=== PATIENT | female | born 1950 | race Caucasian/White ===

== ENCOUNTER 2025-03-11 08:25 | Outpatient (AMB) | payer MEDICARE, SELFPAY ==
--- NOTE | 2025-03-11 08:36 | A.OFFVIS_ITS ---
Intake Visit Reasons: 6 month f/u Allergies morphine Allergy (Verified 03/10/25 21:57) Unknown Medication List - Last Reconciled 03/11/25 by Ignacio Whitten MD azelastine intranasal furosemide mg PO DAILY gentamicin 0.1% topical DAILY levothyroxine 100 mcg PO DAILY omeprazole 20 mg PO DAILY rosuvastatin 5 mg PO DAILY sertraline 25 mg PO DAILY sertraline 50 mg PO DAILY valsartan mg PO DAILY HPI Comments Details: 73 years old woman with multifactorial dementia with signs suggestive of cerebral amyloid angiopathy on her brain MRI. She said that she was not the person she used to be. She used to be very emotional any easily could cry but has not cried for long time despite watching all the tragedy in [place]. She was constantly nervous and anxious. According to her she has been nervous all her life. Headaches were not that frequent at this time. Balance and walking were okay. Bladder control was okay. No significant pain. [facility] Medical History (Updated 03/11/25 @ 08:49 by Ignacio Whitten MD) Sinus disease Stroke Tension type headache Multifactorial dementia Alzheimer disease Mild dementia Encephalopathy Multiple cerebral infarctions Cerebral microvascular disease Chronic sinusitis Anxiety disorder Hypertension Cerebral amyloid angiopathy Review of Systems Const Details: Constitutional:?No fever, chills, fatigue, weight loss, or night sweats. HEENT:?No headache, vision changes, hearing loss, nasal congestion, sore throat. Neurological:? Forgetfulness Psychiatric:? Significant anxiety and flat mood Endocrine:?No heat/cold intolerance, polydipsia, polyuria, or hair/skin changes. Hematologic/Lymphatic:?No easy bruising, bleeding, or lymphadenopathy. Integumentary (Skin):?No rash, lesions, itching, or color changes. ? Physical Exam Neuro Other: Mental Status: Alert and oriented to person, place, and time. Cranial Nerves: CN II: Visual farias full to confrontation, visual acuity intact. CN III, IV, : Pupils equal, round, reactive to light and accommodation. Extraocular movements are normal. CN V: Facial sensation is normal. CN VII: Facial movements symmetrical. CN VIII: Hearing intact to bedside conversation is normal. CN IX, X: Palate elevates symmetrically. CN XI: Shoulder shrug and head turn symmetrical. CN XII: Tongue midline without atrophy or fasciculations. Motor: Bulk and tone normal in all extremities. No significant muscle weakness in arms and legs. No drift. Extrapyramidal: Full facial expressions and blinking. No rigidity. Movements are appropriate with no tremor or abnormality. Speech: Normal; no dysarthria or tremor. Assessment & Plan Assessment & Plan (1) Cerebral amyloid angiopathy: Comment: MRI brain WO at [facility] in Oct 2021: multiple b/l WM lesions on FLAIR and many on gradiant echo, pansinusitis, one right medial frontal acute lesion EEG at off in Sep 2022: [place] CT brain WO at [facility] in Oct 2021: MVD MRA neck and brain at [facility] in 2021: [place] Holter at [facility] in Oct 2021: OK (per pt). Code(s): E85.4 - Organ-limited amyloidosis; I68.0 - Cerebral amyloid angiopathy Category: Medical (2) Dementia with behavioral disturbance: Code(s): F03.918 - Unspecified dementia, unspecified severity, with other behavioral disturbance Category: Medical Plan Impression: Dementia with anxiety and depression with MRI brain showing signs of amyloid angiopathy of mild to moderate severity Rec: a: Continue Sertraline 50mg daily b: Try Quetiapine 25mg one at bedtime c: Psychotherapy can also help Medications: New sertraline 50 mg PO DAILY 90 tabs 0RF 90 days quetiapine 25 mg PO BEDTIME 90 tabs 0RF Coding Level of Care Code Tele Est Pt Level 4 (88861) Diagnoses Cerebral amyloid angiopathy E85.4; I68.0 Dementia with behavioral disturbance F03.918
--- OUTSIDE RECORDS SUMMARY | 2025-03-11 08:39 | XMS_ITS | Clinical Summary ---
Author Organization [facility] Address [address] [place] [address] Care Team Providers Care Baggage Agent Supervisor Name Role Phone Luigi Jenkins MD Primary Care Provider [phone] Social History Tobacco Use Types Packs/Day Years Used Date Smoking Tobacco: Never Assessed Comments Unknown Sex and Gender Information Value Date Recorded Sex Assigned at Not on file Legal Sex Female 2:31 PM EST Gender Identity Not on file Sexual Orientation Not on file Plan of Treatment Health Maintenance Due Date Last Done Comments DTaP,Tdap,and Td Vaccines (1 - Tdap) 11/21/1971 Pneumococcal Vaccine: 50+ Ye ars (1 of 1 - PCV) 2002 Zoster Vaccines (1 of 2) 2002 Colorectal Cancer Screening: Colonoscopy 08/01/2022 Depression Screening 08/01/2022 Falls Risk Assessment 08/01/2022 Hepatitis C Screening 08/01/2022 Osteoporosis Screening (Bone Density Screening) 08/01/2022 Social Influencers of Health Screening 08/01/2022 Breast Cancer Screening 09/28/2023 09/28/2021 COVID-19 Vaccine ( - 2023-2 5 season) 2024 Influenza Vaccine (#1) 2025 RSV Immunization Adult Patie nts (1 - 1-dose 75+ series) 11/21/2027 HIB Vaccines Aged Out No longer eligi ble based on patient's age to complete this topic HPV Vaccines Aged Out No longer eligi ble based on patient's age to complete this topic Hepatitis A Vaccines Aged Out No long er eligible based on patient's age to complete this topic Hepatitis B Vaccines Aged Out No long er eligible based on patient's age to complete this topic IPV Vaccines Aged Out No longer eligi ble based on patient's age to complete this topic MMR Vaccines Aged Out No longer eligi ble based on patient's age to complete this topic Meningococcal ACWY Vaccine Aged Out N o longer eligible based on patient's age to complete this topic Meningococcal B Vaccine Aged Out No l onger eligible based on patient's age to complete this topic RSV Immunization Patients Un ivette 20 months Aged Out No longer eligible b ased on patient's age to complete this topic Varicella Vaccines Aged Out No longer eligible based on patient's age to complete this topic Procedures Procedure Name Priority Date/Time Associated Diagnosis Comments [facility] SCREENING DIGITAL Routine 09/28/2021 8:56 AM EST Encounter for screening mammogram for malignant neoplasm of breast from Last 3 Months or Most Recently Relevant to Health Maintenance Results * [facility] SCREENING DIGITAL (09/28/2021 8:56 AM EST) Anatomical Region Laterality Modality Mammography 09/28/2021 8:20 AM EST Narrative 09/28/2021 8:56 AM EST [facility] Diagnostic Imaging Department [address] [place] [address] Patient: DELILAH SOTELO Orlando BeckB./Age/Sex: 1950 - 70 - F Unit#: [id number] Location/Status: [facility] CLI [facility] Physician: LUIGI JENKINS MD [facility] [place] Screening Digital - 09/28/21 - 0835 EXAM: [facility] [place] Screening Digital EXAM DATE AND TIME: 09/28/2021 8:37 AM HISTORY: Screening. COMPARISON: 07/06/20, 03/03/19, 01/07/18 (outside imaging) TECHNIQUE: CC and MLO views of both breasts were obtained using full field digital mammography. Bilateral digital breast tomosynthesis was performed in the MLO projection. Computer aided detection with the Veebow 7.2-H was employed. TISSUE DENSITY: a. The breasts are almost entirely fatty. FINDINGS: No suspicious masses, grouped microcalcifications, or areas of architectural distortion are seen. Vascular calcification is present. The skin is unremarkable. IMPRESSION: Stable mammographic appearance of the breasts. No evidence of malignancy is seen. A negative mammogram in the presence of a clinically suspicious palpable abnormality does not preclude the possibility of malignancy or alter the indications for biopsy. BI-RADS: Category 2: Benign RECOMMENDATION(S): 1: Routine screening mammogram BILATERAL in 1 year. 66626, 43342 3342F, 7025F Dictating Physician: FATOU PERES MD Electronically Signed by: FATOU PERES MD Dic Date/Time: 09/28/2155 Sign date/Time: 09/28/21 0856 Procedure Note Fatou Peres MD - 08/22/2022 [facility] Diagnostic Imaging Department [address] [place] [address] Patient: DELILAH SOTELO Orlando BeckB./Age/Sex: 1950 - 70 - F Unit#: [id number] Location/Status: [facility] Mnemonic/Ordering Site: [facility] Ordering Physician: LUIGI JENKINS MD [facility] Screening Digital - 09/28/21 - 0835 EXAM: [facility] [place] Screening Digital EXAM DATE AND TIME: 09/28/2021 8:37 AM HISTORY: Screening. COMPARISON: 07/06/20, 03/03/19, 01/07/18 (outside imaging) TECHNIQUE: CC and MLO views of both breasts were obtained using fullfield digital mammography. Bilateral digital breast tomosynthesis was performedin the MLO projection. Computer aided detection with the [employer] employed. TISSUE DENSITY: a. The breasts are almost entirely fatty. FINDINGS: No suspicious masses, grouped microcalcifications, or areas ofarchitectural distortion are seen. Vascular calcification is present. The skin is unremarkable. IMPRESSION: Stable mammographic appearance of the breasts. No evidence of malignancyis seen. A negative mammogram in the presence of a clinically suspicious palpable abnormality does not preclude the possibility of malignancy or alter the indications for biopsy. BI-RADS: Category 2: Benign RECOMMENDATION(S): 1: Routine screening mammogram BILATERAL in 1 year. 42833, 57127 3342F, 7025F Dictating Physician: FATOU PERES MD Electronically Signed by: FATOU PERES MD Dic Date/Time: 09/28/21854 Sign date/Time: 09/28/21855 Luigi Jenkins MD IMG BI PROCEDURES Final Result from Last 3 Months or Most Recently Relevant to Health Maintenance Care Teams Baggage Agent Supervisor Relationship Specialty Start Date End Date Luigi Jenkins MD [address] PCP - General Internal Medicine 11/21/21
--- OUTSIDE RECORDS SUMMARY | 2025-03-11 08:39 | XMS_ITS | Data Portability ---
Author Organization [facility], Main Office Address [address] [facility] [address] [place] [id number] Care Team Providers Care Dispatcher Service Chief Name Role Phone LUIGI JENKINS Primary Care Provider [facility] Certified Hand Therapist NASEEM RIVERA Copy Director HELLEN BANDA Algology Teacher REINA JOHNSON Transitional Nurse ANNA DELATORRE Neurologist [facility] Orthopedic Surgeon NELSON CAVAZOS Mold Holder [phone] Assessment No assessment recorded. Plan of Treatment Reminders Order Date Submit Date Provider Last Modified By Organization Details Last Modified Time Details Appointments None record ed. Lab lipid panel, serum 2024 025 [facility] (Centralized Electronic Ordering - All Locations), Patient Can Go To The Location Of Their Choice, 06:12:46 CMP, serum or plasma 2024 025 [facility] (Centralized Electronic Ordering - All Locations), Patient Can Go To The Location Of Their Choice, 06:12:45 TSH, ultra- sensit tia, serum 2024 025 [facility] (Centralized Electronic Ordering - All Locations), Patient Can Go To The Location Of Their Choice, 06:12:46 CBC w/ auto diff 2024 025 [facility] (Centralized Electronic Ordering - All Locations), Patient Can Go To The Location Of Their Choice, [id number] 5 08:07:53 inflam mation panel, serum or plasma 2024 025 [facility] (Centralized Electronic Ordering - All Locations), Patient Can Go To The Location Of Their Choice, 5 08:07:56 magnes ium, serum or plasma 2024 025 [facility] (Centralized Electronic Ordering - All Locations), Patient Can Go To The Location Of Their Choice, [id number] 5 08:07:57 CMP, serum or plasma 2024 025 [facility] (Centralized Electronic Ordering - All Locations), Patient Can Go To The Location Of Their Choice, [id number] 5 08:07:54 urinal ysis, comple te 2024 025 [facility] (Centralized Electronic Ordering - All Locations), Patient Can Go To The Location Of Their Choice, [id number] 5 08:07:55 TSH + free T4, serum 2024 025 [facility] (Centralized Electronic Ordering - All Locations), Patient Can Go To The Location Of Their Choice, [id number] 5 08:07:52 Referral gastro entero logist referr al 2023 024 [facility], [address] [place], [address], 4 14:59:00 physic al therap ist referr al - At risk for fallin g 2023 024 [email or web address] Not available 4 09:27:40 Procedures None record ed. Surgeries None record ed. Imaging MAMMO, screen ing, bilate ral - Perfor m Diagno stic Mammog amadeo and Breast Ultras ound if needed / Perfor m Ultras ound Guided Aspira tion and/or Breast Biopsy if warran dennis 2023 024 [facility], [address] [place], [address], 4 08:24:38 Medication Orders valsar casas 320 mg tablet 2024 025 [facility], [address] [facility], [place], [address], 5 12:35:50 amoxic illin 875 mg-pot assium clavul anate 125 mg tablet 2024 025 [facility] [address] [place], [address], 5 11:07:16 predni sone 20 mg tablet 2024 025 [facility] [address] [place], [address], 5 11:08:14 predni sone 20 mg tablet 2022 023 [email or web address] [facility] [address] [place], [address], 5 11:08:10 doxycy mckeon hyclat e 100 mg capsul e 2022 023 [email or web address] [facility], [address] [place], [address], 4 08:37:42 benzon atate 100 mg capsul e 2022 023 [email or web address] [facility], [address] [place], [address], 4 08:37:34 Patient TargetsNo targets recorded. Patient Instructions Encounter Date Encounter Id Patient Instructions Last Modified By Organization Details Last Modified Time 07/11/2023 [id number] rec. albuterol 1 -2 puffs 3x/day x 3 days, then use every 4 hours as needed for shortness of breath / coughing fits [email or web address] Not available 07/11/2023 10:59:14 Follow up if no improvement or if symptoms worsen. [email or web address] Not available 07/11/2023 10:49:25 10/15/2023 [id number] advance care planning: care instructions awychowski Not available 10/15/2023 09:21:24 osteoporosis: ca re instructions awychowski Not available 10/15/2023 09:21:23 dementia: care instructions awychowski Not available 10/15/2023 09:21:24 helping A person with dementia: care instructions awychowski Not available 10/15/2023 09:21:24 high blood press ure: care instructions awychowski Not available 10/15/2023 09:21:24 learning about h igh blood pressure awychowski Not available 10/15/2023 09:21:24 gastroesophageal reflux disease (GERD): care instructions awychowski Not available 10/15/2023 09:21:23 preventing falls : care instructions awychowski Not available 10/15/2023 09:21:23 medicare prevent tia services guide (female 74yrs and under) awychowski Not available 10/15/2023 09:21:23 high cholesterol : care instructions awychowski Not available 10/15/2023 09:21:24 controlling your asthma: care instructions awychowski Not available 10/15/2023 09:21:24 learning about asthma awychowski Not available 10/15/2023 09:21:24 hypothyroidism: care instructions awychowski Not available 10/15/2023 09:21:24 01/02/2024 [id number] high blood press ure: care instructions awychowski Not available 01/02/2024 11:53:50 learning about h igh blood pressure awychowski Not available 01/02/2024 11:53:50 10/05/2024 [id number] headache: care instructions awychowski Not available 10/05/2024 11:51:08 hypothyroidism: care instructions awychowski Not available 10/05/2024 11:51:08 10/20/2024 [id number] advance care planning: care instructions awychowski Not available 10/20/2024 12:35:48 advance care planning: care instructions awychowski Not available 10/20/2024 12:39:26 osteoporosis: ca re instructions awychowski Not available 10/20/2024 12:35:48 dementia: care instructions awychowski Not available 10/20/2024 12:35:47 helping A person with dementia: care instructions awychowski Not available 10/20/2024 12:35:48 gastroesophageal reflux disease (GERD): care instructions awychowski Not available 10/20/2024 12:35:47 preventing falls : care instructions awychowski Not available 10/20/2024 12:35:48 well visit, over 65: care instructions awychowski Not available 10/20/2024 12:35:47 medicare prevent tia services guide (female 74yrs and under) awychowski Not available 10/20/2024 12:35:47 high cholesterol : care instructions awychowski Not available 10/20/2024 12:35:48 high blood press ure: care instructions awychowski Not available 10/20/2024 12:35:47 learning about h igh blood pressure awychowski Not available 10/20/2024 12:35:47 hypothyroidism: care instructions awychowski Not available 10/20/2024 12:35:48 Reason for Referral Physical Therapist Referral for At increased risk for falls At risk for falling Referring Physician: Luigi Jenkins [facility] Medicine, Encounter Date: 10/15/2023 Mold Holder Referral for Adenomatous polyp of colon Referring Physician: Luigi Jenkins [facility] Medicine, Encounter Date: 10/15/2023 Results Created Date Observation Date Name Description Value Unit Range Abnormal Flag Note LastModifiedBy Organization Detail LastModifiedTime 10/14/1910/14/2023 LAB ONLY URINA LYSIS appear/color COLOR LESS CLEAR Not Available [facility] (Centralized Electronic Ordering - All Locations) Patient Can Go To The Location Of Their Choice, 10/14/2023 14:17:41 10/14/1910/14/2023 LAB ONLY URINA LYSIS sp. gravity 1.008 (1.002 -1.030 ) Not Available [facility] (Centralized Electronic Ordering - All Locations) Patient Can Go To The Location Of Their Choice, [id number] 10/14/2023 14:17:41 10/14/1910/14/2023 LAB ONLY URINA LYSIS urine pH 7.5 (5.0-8 .0) Not Available [facility] (Centralized Electronic Ordering - All Locations) Patient Can Go To The Location Of Their Choice, 10/14/2023 14:17:41 10/14/1910/14/2023 LAB ONLY URINA LYSIS urine albumin NEGATI VE (neg) Not Available [facility] (Centralized Electronic Ordering - All Locations) Patient Can Go To The Location Of Their Choice, 10/14/2023 14:17:41 10/14/1910/14/2023 LAB ONLY URINA LYSIS urine glucose NEGATI VE (neg) Not Available [facility] (Centralized Electronic Ordering - All Locations) Patient Can Go To The Location Of Their Choice, 10/14/2023 14:17:41 10/14/1910/14/2023 LAB ONLY URINA LYSIS urine ketones NEGATI VE (neg) Not Available [facility] (Centralized Electronic Ordering - All Locations) Patient Can Go To The Location Of Their Choice, 10/14/2023 14:17:41 10/14/1910/14/2023 LAB ONLY URINA LYSIS urine bilirubin NEGATI VE (neg) Not Available [facility] (Centralized Electronic Ordering - All Locations) Patient Can Go To The Location Of Their Choice, 10/14/2023 14:17:41 10/14/1910/14/2023 LAB ONLY URINA LYSIS urine hemoglobin NEGATI VE (neg) Not Available [facility] (Centralized Electronic Ordering - All Locations) Patient Can Go To The Location Of Their Choice, 10/14/2023 14:17:41 10/14/1910/14/2023 LAB ONLY URINA LYSIS urine nitrite NEGATI VE (neg) Not Available [facility] (Centralized Electronic Ordering - All Locations) Patient Can Go To The Location Of Their Choice, 10/14/2023 14:17:41 10/14/1910/14/2023 LAB ONLY URINA LYSIS urine leukocyte NEGATI VE (neg) Not Available [facility] (Centralized Electronic Ordering - All Locations) Patient Can Go To The Location Of Their Choice, 10/14/2023 14:17:41 10/14/1910/14/2023 LAB ONLY URINA LYSIS urobilinogen NORMAL mg/dL (norm) Not Available [facility] ([facility] Order[facility] - All Locations) Patient Can Go To The Location Of Their Choice, 10/14/2023 14:17:41 10/14/1910/14/2023 LAB ONLY URINA LYSIS urine WBCs NONE SEEN /hpf (0-5) Not Available [facility] (Centralized Electronic Ordering - All Locations) Patient Can Go To The Location Of Their Choice, 10/14/2023 14:17:41 10/14/1910/14/2023 LAB ONLY URINA LYSIS urine RBCs <1 /hpf (0-3) Not Available [facility] (Centralized Electronic Ordering - All Locations) Patient Can Go To The Location Of Their Choice, 10/14/2023 14:17:41 10/14/1910/14/2023 LAB ONLY URINA LYSIS mucus SLIGHT /lpf Not Available [facility] (Centralized Electronic Ordering - All Locations) Patient Can Go To The Location Of Their Choice, 10/14/2023 14:17:41 10/14/1910/14/2023 LAB ONLY URINA LYSIS squamous epith <1 /hpf (0-8) Not Available [facility] ([facility] Order[facility] - All Locations) Patient Can Go To The Location Of Their Choice, 10/14/2023 14:17:41 10/14/1910/14/2023 COMPR EHENS TIA METAB OLIC PANL glucose 97 mg/dL (70-99 ) Not Available [facility] (Centralized Electronic Ordering - All Locations) Patient Can Go To The Location Of Their Choice, 10/14/2023 15:48:08 10/14/1910/14/2023 COMPR EHENS TIA METAB OLIC PANL BUN 16 mg/dL (8-23) Not Available [facility] (Centralized Electronic Ordering - All Locations) Patient Can Go To The Location Of Their Choice, 10/14/2023 15:48:08 10/14/1910/14/2023 COMPR EHENS TIA METAB OLIC PANL creatinine 0.7 mg/dL (0.5-1 .0) Not Available [facility] (Centralized Electronic Ordering - All Locations) Patient Can Go To The Location Of Their Choice, 10/14/2023 15:48:10/14/19 24 10/14/2023 COMPR EHENS TIA METAB OLIC PANL sodium 137 mmol/ L (133-1 45) Not Available [facility] ([facility]ized Electronic Ordering - All Locations) Patient Can Go To The Location Of Their Choice, 10/14/2023 15:48:08 10/14/19 24 10/14/2023 COMPR EHENS TIA METAB OLIC PANL potassium 4.9 mmol/ L (3.6-5 .2) Not Available [facility] (Centralized Electronic Ordering - All Locations) Patient Can Go To The Location Of Their Choice, 10/14/2023 15:48:10/14/19 24 10/14/2023 COMPR EHENS TIA METAB OLIC PANL chloride 101 mmol/ L (98-10 7) Not Available [facility] (Centralized Electronic Ordering - All Locations) Patient Can Go To The Location Of Their Choice, 10/14/2023 15:48:10/14/1910/14/2023 COMPR EHENS TIA METAB OLIC PANL bicarbonate 26 mmol/ L (22-29 ) Not Available [facility] (Centralized Electronic Ordering - All Locations) Patient Can Go To The Location Of Their Choice, 10/14/2023 15:48:10/14/1910/14/2023 COMPR EHENS TIA METAB OLIC PANL anion gap 10 (4-17) Not Available [facility] (Centralized Electronic Ordering - All Locations) Patient Can Go To The Location Of Their Choice, 10/14/2023 15:48:10/14/1910/14/2023 COMPR EHENS TIA METAB OLIC PANL albumin 4.3 gm/dL (3.4-4 .8) Not Available [facility] (Centralized Electronic Ordering - All Locations) Patient Can Go To The Location Of Their Choice, 10/14/2023 15:48:10/14/1910/14/2023 COMPR EHENS TIA METAB OLIC PANL calcium 9.6 mg/dL (8.6-1 0.5) Not Available [facility] (Centralized Electronic Ordering - All Locations) Patient Can Go To The Location Of Their Choice, 10/14/2023 15:48:10/14/1910/14/2023 COMPR EHENS TIA METAB OLIC PANL bilirubin,to patricia 0.4 mg/dL (0-1.2 ) Not Available [facility] (Centralized Electronic Ordering - All Locations) Patient Can Go To The Location Of Their Choice, 10/14/2023 15:48:08 10/14/19 24 10/14/2023 COMPR EHENS TIA METAB OLIC PANL total protein 6.4 gm/dL (6.2-8 .2) Not Available [facility] ([facility] Electronic Ordering - All Locations) Patient Can Go To The Location Of Their Choice, 10/14/2023 15:48:08 10/14/19 24 10/14/2023 COMPR EHENS TIA METAB OLIC PANL Ag ratio 2.0 Not Available [facility] (Centralized Electronic Ordering - All Locations) Patient Can Go To The Location Of Their Choice, 10/14/2023 15:48:08 10/14/19 24 10/14/2023 COMPR EHENS TIA METAB OLIC PANL AST 22 U/L (0-32) Not Available [facility] (Centralized Electronic Ordering - All Locations) Patient Can Go To The Location Of Their Choice, 10/14/2023 15:48:08 10/14/19 24 10/14/2023 COMPR EHENS TIA METAB OLIC PANL alk phos 92 U/L (35-10 4) Not Available [facility] ([facility]ized Electronic Ordering - All Locations) Patient Can Go To The Location Of Their Choice, 10/14/2023 15:48:08 10/14/19 24 10/14/2023 COMPR EHENS TIA METAB OLIC PANL ALT 20 U/L (0-33) Not Available [facility] ([facility] Ordering - All Locations) Patient Can Go To The Location Of Their Choice, 10/14/2023 15:48:08 10/14/19 24 10/14/2023 COMPR EHENS TIA METAB OLIC PANL estimated GFR creatinine 90 mL/mi n/1.7 3_M2 Creat inine based estim ated glome rular filtr ation (eGFR ) in adult s is calcu lated using the Natio nal Kidne y Found ation recom teddy d 2020 CKD-E PI equat ion. Estim ates GFR from serum creat inine , age and sex. Not Available [facility] ([facility]ized [facility] Ordering - All Locations) Patient Can Go To The Location Of Their Choice, 10/14/2023 15:48:08 10/14/1910/14/2023 LIPID PANEL cholesterol, total 251 mg/dL (<200) high Not Available [facility] ([facility] Order[facility] - All Locations) Patient Can Go To The Location Of Their Choice, 10/14/2023 15:48:10 10/14/1910/14/2023 LIPID PANEL triglyceride 55 mg/dL (<150) Not Available [facility] ([facility] Order[facility] - All Locations) Patient Can Go To The Location Of Their Choice, 10/14/2023 15:48:10 10/14/1910/14/2023 LIPID PANEL HDL chol 85 mg/dL (>39) Not Available [facility] ([facility] Ordering - All Locations) Patient Can Go To The Location Of Their Choice, 10/14/2023 15:48:10 10/14/1910/14/2023 LIPID PANEL LDL cholesterol, calculated 155 mg/dL (0-130 ) high Not Available [facility] ([facility] Ordering - All Locations) Patient Can Go To The Location Of Their Choice, 10/14/2023 15:48:10 10/14/1910/14/2023 LIPID PANEL non HDL cholesterol (calc) 166 mg/dL (<160) high Not Available [facility] ([facility] Order[facility] - All Locations) Patient Can Go To The Location Of Their Choice, 10/14/2023 15:48:10 10/14/1910/14/2023 TSH WITH REFLE X TO FT4 TSH 2.84 uIU/m L (0.4-4 .2) Not Available [facility] ([facility] Order[facility] - All Locations) Patient Can Go To The Location Of Their Choice, 10/14/2023 15:59:18 10/05/1910/06/2024 TSH+F REE T4 TSH 5.340 uIU/m L 0.450- 4.500 above high normal Not Available [facility] ([facility]) [address] [facility], [place], [address], 10/06/2024 08:07:52 10/05/19 25 10/06/2024 TSH+F REE T4 T4,free(dire ct) 1.27 NG/dL 0.82-1 .77 normal Not Available [facility] ([facility]) [address] [place], [address], 10/06/2024 08:07:52 10/05/19 25 10/06/2024 CBC WITH DIFFE RENTI AL/PL ATELE T WBC 6.1 x10e3 /uL 3.4-10 .8 normal Not Available [facility] ([facility]) [address] [place], [address], 10/06/2024 08:07:53 10/05/19 25 10/06/2024 CBC WITH DIFFE RENTI AL/PL ATELE T RBC 4.31 x10e6 /uL 3.77-5 .28 normal Not Available [facility] ([facility]) [address] [place], [address], 10/06/2024 08:07:53 10/05/1910/06/2024 CBC WITH DIFFE RENTI AL/PL ATELE T hemoglobin 12.9 g/dL 11.1-1 5.9 normal Not Available [facility] ([facility]) [address] [place], [address], 10/06/2024 08:07:53 10/05/19 25 10/06/2024 CBC WITH DIFFE RENTI AL/PL ATELE T hematocrit 39.5 % 34.0-4 6.6 normal Not Available [facility] ([facility]) [address] [place], [address], 10/06/2024 08:07:53 10/05/19 25 10/06/2024 CBC WITH DIFFE RENTI AL/PL ATELE T MCV 92 fL 79-97 normal Not Available [facility] ([facility]) [address] [place], [address], 10/06/2024 08:07:53 10/05/19 25 10/06/2024 CBC WITH DIFFE RENTI AL/PL ATELE T MCH 29.9 pg 26.6-3 3.0 normal Not Available [facility] ([facility]) [address] [facility], [place], [address], 10/06/2024 08:07:53 10/05/19 25 10/06/2024 CBC WITH DIFFE RENTI AL/PL ATELE T MCHC 32.7 g/dL 31.5-3 5.7 normal Not Available [facility] ([facility]) [address] [place], [address], 10/06/2024 08:07:53 10/05/19 25 10/06/2024 CBC WITH DIFFE RENTI AL/PL ATELE T RDW 12.8 % 11.7-1 5.4 Not Available [facility] ([facility]) [address] [facility], [place], [address], 10/06/2024 08:07:53 10/05/19 25 10/06/2024 CBC WITH DIFFE RENTI AL/PL ATELE T platelets 237 x10e3 /uL 150-45 0 normal Not Available [facility] ([facility]) [address] [place], [address], 10/06/2024 08:07:53 10/05/19 25 10/06/2024 CBC WITH DIFFE RENTI AL/PL ATELE T neutrophils 57 % not estab. normal Not Available [facility] ([facility]) [address] [place], [address], 10/06/2024 08:07:53 10/05/19 25 10/06/2024 CBC WITH DIFFE RENTI AL/PL ATELE T lymphs 35 % not estab. normal Not Available [facility] ([facility]) [address] [place], [address], 10/06/2024 08:07:53 10/05/19 25 10/06/2024 CBC WITH DIFFE RENTI AL/PL ATELE T monocytes 5 % not estab. normal Not Available [facility] ([facility]) [address] [facility], [place], [address], 10/06/2024 08:07:53 10/05/19 25 10/06/2024 CBC WITH DIFFE RENTI AL/PL ATELE T eos 2 % not estab. normal Not Available [facility] ([facility]) [address] [place], [address], 10/06/2024 08:07:53 10/05/19 25 10/06/2024 CBC WITH DIFFE RENTI AL/PL ATELE T basos 1 % not estab. normal Not Available [facility] ([facility]) [address] [place], [address], 10/06/2024 08:07:53 10/05/19 25 10/06/2024 CBC WITH DIFFE RENTI AL/PL ATELE T immature cells GANG DRILL OPERATOR Not Available [facility] ([facility]) [address] [place], [address], 10/06/2024 08:07:53 10/05/19 25 10/06/2024 CBC WITH DIFFE RENTI AL/PL ATELE T neutrophils (absolute) 3.4 x10e3 /uL 1.4-7. 0 normal Not Available [facility] ([facility]) [address] [place], [address], 10/06/2024 08:07:53 10/05/19 25 10/06/2024 CBC WITH DIFFE RENTI AL/PL ATELE T lymphs (absolute) 2.2 x10e3 /uL 0.7-3. 1 normal Not Available [facility] ([facility]) [address] [place], [address], 10/06/2024 08:07:53 10/05/19 25 10/06/2024 CBC WITH DIFFE RENTI AL/PL ATELE T monocytes(ab solute) 0.3 x10e3 /uL 0.1-0. 9 normal Not Available [facility] ([facility]) [address] [facility], [place], [address], 10/06/2024 08:07:53 10/05/19 25 10/06/2024 CBC WITH DIFFE RENTI AL/PL ATELE T eos (absolute) 0.1 x10e3 /uL 0.0-0. 4 normal Not Available [facility] ([facility]) [address] [facility], [place], [address], 10/06/2024 08:07:53 10/05/19 25 10/06/2024 CBC WITH DIFFE RENTI AL/PL ATELE T baso (absolute) 0.0 x10e3 /uL 0.0-0. 2 normal Not Available [facility] ([facility]) [address] [facility], [place], [address], 10/06/2024 08:07:53 10/05/19 25 10/06/2024 CBC WITH DIFFE RENTI AL/PL ATELE T immature granulocytes 0 % not estab. Not Available [facility] ([facility]) [address] [place], [address], 10/06/2024 08:07:53 10/05/19 25 10/06/2024 CBC WITH DIFFE RENTI AL/PL ATELE T immature grans (abs) 0.0 x10e3 /uL 0.0-0. 1 Not Available [facility] ([facility]) [address] [place], [address], 10/06/2024 08:07:53 10/05/19 25 10/06/2024 CBC WITH DIFFE RENTI AL/PL ATELE T NRBC GANG DRILL OPERATOR Not Available [facility] ([facility]) [address] [place], [address], 10/06/2024 08:07:53 10/05/19 25 10/06/2024 CBC WITH DIFFE RAFAEL AL/GRACIE [place] hematology comments: GANG DRILL OPERATOR Not Available [facility] ([facility]) [address] [facility], [place], [address], 10/06/2024 08:07:53 10/05/19 25 10/06/2024 COMP. METAB OLIC PANEL (14) glucose 85 mg/dL 70-99 normal Not Available [facility] ([facility]) [address] [facility], [place], [address], 10/06/2024 08:07:54 10/05/19 25 10/06/2024 COMP. METAB OLIC PANEL (14) BUN 9 mg/dL 8-27 normal Not Available [facility] ([facility]) [address] [facility], [place], [address], 10/06/2024 08:07:54 10/05/19 25 10/06/2024 COMP. METAB OLIC PANEL (14) creatinine 0.69 mg/dL 0.57-1 .00 normal Not Available [facility] ([facility]) [address] [facility], [place], [address], 10/06/2024 08:07:54 10/05/19 25 10/06/2024 COMP. METAB OLIC PANEL (14) eGFR 93 mL/mi n/1.7 3 >59 normal Not Available [facility] ([facility]) [address] [facility], [place], [address], 10/06/2024 08:07:54 10/05/19 25 10/06/2024 COMP. METAB OLIC PANEL (14) BUN/creatini ne ratio 13 12-28 normal Not Available [facility] ([facility]) [address] [facility], [place], [address], 10/06/2024 08:07:54 10/05/19 25 10/06/2024 COMP. METAB OLIC PANEL (14) sodium 136 mmol/ L 134-14 4 normal Not Available [facility] ([facility]) [address] [facility] [place] [place], [address], 10/06/2024 08:07:54 10/05/19 25 10/06/2024 COMP. METAB OLIC PANEL (14) potassium 4.3 mmol/ L 3.5-5. 2 normal Not Available [facility] ([facility]) [address] [facility] [place] [place], [address], 10/06/2024 08:07:54 10/05/19 25 10/06/2024 COMP. METAB OLIC PANEL (14) chloride 96 mmol/ L 96-106 normal Not Available [facility] ([facility]) [address] [facility] [place] [place], [address], 10/06/2024 08:07:54 10/05/19 25 10/06/2024 COMP. METAB OLIC PANEL (14) carbon dioxide, total 24 mmol/ L 20-29 normal Not Available [facility] ([facility]) [address] [facility] [place], [address], 10/06/2024 08:07:54 10/05/19 25 10/06/2024 COMP. METAB OLIC PANEL (14) calcium 9.6 mg/dL 8.7-10 .3 normal Not Available [facility] ([facility]) [address] [facility] [place], [address], 10/06/2024 08:07:54 10/05/19 25 10/06/2024 COMP. METAB OLIC PANEL (14) protein, total 6.8 g/dL 6.0-8. 5 normal Not Available [facility] ([facility]) [address] [facility] [place], [address], 10/06/2024 08:07:54 10/05/19 25 10/06/2024 COMP. METAB OLIC PANEL (14) albumin 4.6 g/dL 3.8-4. 8 normal Not Available [facility] ([facility]) [address] [facility] [place] [place], [address], 10/06/2024 08:07:54 10/05/19 25 10/06/2024 COMP. METAB OLIC PANEL (14) globulin, total 2.2 g/dL 1.5-4. 5 Not Available [facility] ([facility]) [address] [facility] [place] [place], [address], 10/06/2024 08:07:54 10/05/19 25 10/06/2024 COMP. METAB OLIC PANEL (14) bilirubin, total 0.4 mg/dL 0.0-1. 2 normal Not Available [facility] ([facility]) [address] [facility] [place] [place], [address], 10/06/2024 08:07:54 10/05/19 25 10/06/2024 COMP. METAB OLIC PANEL (14) alkaline phosphatase 83 IU/L 44-121 normal Not Available [facility] ([facility]) [address] [facility] [place] [place], [address], 10/06/2024 08:07:54 10/05/19 25 10/06/2024 COMP. METAB OLIC PANEL (14) AST (SGOT) 23 IU/L 0-40 normal Not Available [facility] ([facility]) [address] [place], [address], 10/06/2024 08:07:54 10/05/19 25 10/06/2024 COMP. METAB OLIC PANEL (14) ALT (SGPT) 19 IU/L 0-32 normal Not Available [facility] ([facility]) [address] [place], [address], 10/06/2024 08:07:54 10/05/19 25 10/06/2024 URINA LYSIS , COMPL ETE specific gravity 1.007 1.005- 1.030 normal Not Available [facility] ([facility]) [address] [facility] [place], [address], 10/06/2024 08:07:55 10/05/19 25 10/06/2024 URINA LYSIS , COMPL ETE pH 7.5 5.0-7. 5 normal Not Available [facility] ([facility]) [address] [facility], [place], [address], 10/06/2024 08:07:55 10/05/19 25 10/06/2024 URINA LYSIS , COMPL ETE urine-color YELLOW yellow Not Available [facility] ([facility]) [address] [place], [address], 10/06/2024 08:07:55 10/05/19 25 10/06/2024 URINA LYSIS , COMPL ETE appearance CLEAR clear Not Available [facility] ([facility]) [address] [facility], [place], [address], 10/06/2024 08:07:55 10/05/19 25 10/06/2024 URINA LYSIS , COMPL ETE WBC esterase NEGATI VE negati ve Not Available [facility] ([facility]) [address] [place], [address], 10/06/2024 08:07:55 10/05/19 25 10/06/2024 URINA LYSIS , COMPL ETE protein NEGATI VE negati ve/tra ce Not Available [facility] ([facility]) [address] [place], [address], 10/06/2024 08:07:55 10/05/19 25 10/06/2024 URINA LYSIS , COMPL ETE glucose NEGATI VE negati ve Not Available [facility] ([facility]) [address] [place], [address], 10/06/2024 08:07:55 10/05/19 25 10/06/2024 URINA LYSIS , COMPL ETE ketones NEGATI VE negati ve Not Available [facility] ([facility]) [address] [facility], [place], [address], 10/06/2024 08:07:55 10/05/19 25 10/06/2024 URINA LYSIS , COMPL ETE occult blood NEGATI VE negati ve Not Available [facility] ([facility]) [address] [place], [address], 10/06/2024 08:07:55 10/05/19 25 10/06/2024 URINA LYSIS , COMPL ETE bilirubin NEGATI VE negati ve Not Available [facility] ([facility]) [address] [place], [address], 10/06/2024 08:07:55 10/05/19 25 10/06/2024 URINA LYSIS , COMPL ETE urobilinogen ,semi-qn 0.2 mg/dL 0.2-1. 0 normal Not Available [facility] ([facility]) [address] [place], [address], 10/06/2024 08:07:55 10/05/19 25 10/06/2024 URINA LYSIS , COMPL ETE nitrite, urine NEGATI VE negati ve Not Available [facility] ([facility]) [address] [place], [address], 10/06/2024 08:07:55 10/05/19 25 10/06/2024 URINA LYSIS , COMPL ETE microscopic examination COMMEN T Micro scopi c follo ws if indic ated. Not Available [facility] ([facility]) [address] [place], [address], 10/06/2024 08:07:55 10/05/19 25 10/06/2024 URINA LYSIS , COMPL ETE microscopic examination SEE BELOW: Micro scopi c was indic ated and was perfo rmed. Not Available [facility] ([facility]) [address] [place], [address], 10/06/2024 08:07:55 10/05/19 25 10/06/2024 URINA LYSIS , COMPL ETE WBC NONE SEEN /hpf 0 - 5 Not Available [facility] ([facility]) [address] [facility], [place], [address], 10/06/2024 08:07:55 10/05/19 25 10/06/2024 URINA LYSIS , COMPL ETE RBC NONE SEEN /hpf 0 - 2 Not Available [facility] ([facility]) [address] [facility], [place], [address], 10/06/2024 08:07:55 10/05/19 25 10/06/2024 URINA LYSIS , COMPL ETE epithelial cells (non renal) NONE SEEN /hpf 0 - 10 Not Available [facility] ([facility]) [address] [facility], [place], [address], 10/06/2024 08:07:55 10/05/19 25 10/06/2024 URINA LYSIS , COMPL ETE epithelial cells (renal) GANG DRILL OPERATOR Not Available [facility] ([facility]) [address] [facility], [place], [address], 10/06/2024 08:07:55 10/05/19 25 10/06/2024 URINA LYSIS , COMPL ETE casts NONE SEEN /lpf none seen Not Available [facility] ([facility]) [address] [facility], [place], [address], 10/06/2024 08:07:55 10/05/19 25 10/06/2024 URINA LYSIS , COMPL ETE cast type GANG DRILL OPERATOR Not Available [facility] ([facility]) [address] [facility], [place], [address], 10/06/2024 08:07:55 10/05/19 25 10/06/2024 URINA LYSIS , COMPL ETE crystals GANG DRILL OPERATOR Not Available [facility] ([facility]) [address] [facility], [place], [address], 10/06/2024 08:07:55 10/05/19 25 10/06/2024 URINA LYSIS , COMPL ETE crystal type GANG DRILL OPERATOR Not Available [facility] ([facility]) [address] [facility], [place], [address], 10/06/2024 08:07:55 10/05/19 25 10/06/2024 URINA LYSIS , COMPL ETE mucus threads GANG DRILL OPERATOR Not Available [facility] ([facility]) [address] [place], [address], 10/06/2024 08:07:55 10/05/19 25 10/06/2024 URINA LYSIS , COMPL ETE bacteria NONE SEEN none seen/f ew Not Available [facility] ([facility]) [address] [place], [address], 10/06/2024 08:07:55 10/05/19 25 10/06/2024 URINA LYSIS , COMPL ETE yeast GANG DRILL OPERATOR Not Available [facility] ([facility]) [address] [place], [address], 10/06/2024 08:07:55 10/05/19 25 10/06/2024 URINA LYSIS , COMPL ETE trichomonas GANG DRILL OPERATOR Not Available [facility] ([facility]) [address] [place], [address], 10/06/2024 08:07:55 10/05/19 25 10/06/2024 URINA LYSIS , COMPL ETE comment GANG DRILL OPERATOR Not Available [facility] ([facility]) [address] [place], [address], 10/06/2024 08:07:55 10/05/19 25 10/06/2024 ESR-W ES+CR P sedimentatio n rate-westerg mirlande 13 mm/HR 0-40 normal Not Available [facility] ([facility]) [address] [place], [address], 10/06/2024 08:07:56 10/05/19 25 10/06/2024 ESR-W ES+CR P C-reactive protein, quant <1 mg/L 0-10 Not Available [facility] ([facility]) [address] [place], [address], 10/06/2024 08:07:56 10/05/19 25 10/06/2024 MAGNE SIUM magnesium 2.2 mg/dL 1.6-2. 3 normal Not Available [facility] ([facility]) [address] [place], [address], 10/06/2024 08:07:56 10/05/19 25 10/06/2024 URINA LYSIS , COMPL ETE specific gravity 1.007 1.005- 1.030 normal Not Available [facility] ([facility]) [address] [place], [address], 10/07/2024 14:06:36 10/05/19 25 10/06/2024 URINA LYSIS , COMPL ETE pH 7.5 5.0-7. 5 normal Not Available [facility] ([facility]) [address] [place], [address], 10/07/2024 14:06:36 10/05/19 25 10/06/2024 URINA LYSIS , COMPL ETE urine-color YELLOW yellow Not Available [facility] ([facility]) [address] [place], [address], 10/07/2024 14:06:36 10/05/19 25 10/06/2024 URINA LYSIS , COMPL ETE appearance CLEAR clear Not Available [facility] ([facility]) [address] [place], [address], 10/07/2024 14:06:36 10/05/19 25 10/06/2024 URINA LYSIS , COMPL ETE WBC esterase NEGATI VE negati ve Not Available [facility] ([facility]) [address] [facility], [place], [address], 10/07/2024 14:06:36 10/05/19 25 10/06/2024 URINA LYSIS , COMPL ETE protein NEGATI VE negati ve/tra ce Not Available [facility] ([facility]) [address] [facility], [place], [address], 10/07/2024 14:06:36 10/05/19 25 10/06/2024 URINA LYSIS , COMPL ETE glucose NEGATI VE negati ve Not Available [facility] ([facility]) [address] [facility], [place], [address], 10/07/2024 14:06:36 10/05/19 25 10/06/2024 URINA LYSIS , COMPL ETE ketones NEGATI VE negati ve Not Available [facility] ([facility]) [address] [place], [address], 10/07/2024 14:06:36 10/05/19 25 10/06/2024 URINA LYSIS , COMPL ETE occult blood NEGATI VE negati ve Not Available [facility] ([facility]) [address] [facility], [place], [address], 10/07/2024 14:06:36 10/05/19 25 10/06/2024 URINA LYSIS , COMPL ETE bilirubin NEGATI VE negati ve Not Available [facility] ([facility]) [address] [place], [address], 10/07/2024 14:06:36 10/05/19 25 10/06/2024 URINA LYSIS , COMPL ETE urobilinogen ,semi-qn 0.2 mg/dL 0.2-1. 0 normal Not Available [facility] ([facility]) [address] [place], [address], 10/07/2024 14:06:36 10/05/19 25 10/06/2024 URINA LYSIS , COMPL ETE nitrite, urine NEGATI VE negati ve Not Available [facility] ([facility]) [address] [facility], [place], [address], 10/07/2024 14:06:36 10/05/19 25 10/06/2024 URINA LYSIS , COMPL ETE microscopic examination COMMEN T Micro scopi c follo ws if indic ated. Not Available [facility] ([facility]) [address] [facility], [place], [address], 10/07/2024 14:06:36 10/05/19 25 10/06/2024 URINA LYSIS , COMPL ETE microscopic examination SEE BELOW: Micro scopi c was indic ated and was perfo rmed. Not Available [facility] ([facility]) [address] [facility], [place], [address], 10/07/2024 14:06:36 10/05/19 25 10/06/2024 URINA LYSIS , COMPL ETE WBC NONE SEEN /hpf 0 - 5 Not Available [facility] ([facility]) [address] [facility], [place], [address], 10/07/2024 14:06:36 10/05/19 25 10/06/2024 URINA LYSIS , COMPL ETE RBC NONE SEEN /hpf 0 - 2 Not Available [facility] ([facility]) [address] [facility], [place], [address], 10/07/2024 14:06:36 10/05/19 25 10/06/2024 URINA LYSIS , COMPL ETE epithelial cells (non renal) NONE SEEN /hpf 0 - 10 Not Available [facility] ([facility]) [address] [facility], [place], [address], 10/07/2024 14:06:36 10/05/19 25 10/06/2024 URINA LYSIS , COMPL ETE casts NONE SEEN /lpf none seen Not Available [facility] ([facility]) [address] [facility], [place], [address], 10/07/2024 14:06:36 10/05/19 25 10/06/2024 URINA LYSIS , COMPL ETE bacteria NONE SEEN none seen/f ew Not Available [facility] ([facility]) [address] [facility], [place], [address], 10/07/2024 14:06:36 01/08/20 25 01/08/2025 COMP. METAB OLIC PANEL (14) glucose 88 mg/dL 70-99 normal Not Available [facility] ([facility]) [address] [facility] [place] [place], [address], 01/08/2025 06:12:45 01/08/20 25 01/08/2025 COMP. METAB OLIC PANEL (14) BUN 13 mg/dL 8-27 normal Not Available [facility] ([facility]) [address] [facility], [place], [address], 01/08/2025 06:12:45 01/08/20 25 01/08/2025 COMP. METAB OLIC PANEL (14) creatinine 0.72 mg/dL 0.57-1 .00 normal Not Available [facility] ([facility]) [address] [facility], [place], [address], 01/08/2025 06:12:45 01/08/20 25 01/08/2025 COMP. METAB OLIC PANEL (14) eGFR 89 mL/mi n/1.7 3 >59 normal Not Available [facility] ([facility]) [address] [facility] [place] [place], [address], 01/08/2025 06:12:45 01/08/20 25 01/08/2025 COMP. METAB OLIC PANEL (14) BUN/creatini ne ratio 18 12-28 normal Not Available [facility] ([facility]) [address] [facility] [place] [place], [address], 01/08/2025 06:12:45 01/08/20 25 01/08/2025 COMP. METAB OLIC PANEL (14) sodium 138 mmol/ L 134-14 4 normal Not Available [facility] ([facility]) [address] [facility] [place] [place], [address], 01/08/2025 06:12:45 01/08/20 25 01/08/2025 COMP. METAB OLIC PANEL (14) potassium 4.8 mmol/ L 3.5-5. 2 normal Not Available [facility] ([facility]) [address] [facility] [place], [address], 01/08/2025 06:12:45 01/08/20 25 01/08/2025 COMP. METAB OLIC PANEL (14) chloride 98 mmol/ L 96-106 normal Not Available [facility] ([facility]) [address] [facility], [place], [address], 01/08/2025 06:12:45 01/08/20 25 01/08/2025 COMP. METAB OLIC PANEL (14) carbon dioxide, total 22 mmol/ L 20-29 normal Not Available [facility] ([facility]) [address] [facility] [place], [address], 01/08/2025 06:12:45 01/08/20 25 01/08/2025 COMP. METAB OLIC PANEL (14) calcium 9.4 mg/dL 8.7-10 .3 normal Not Available [facility] ([facility]) [address] [facility] [place], [address], 01/08/2025 06:12:45 01/08/20 25 01/08/2025 COMP. METAB OLIC PANEL (14) protein, total 6.9 g/dL 6.0-8. 5 normal Not Available [facility] ([facility]) [address] [facility] [place], [address], 01/08/2025 06:12:45 01/08/20 25 01/08/2025 COMP. METAB OLIC PANEL (14) albumin 4.5 g/dL 3.8-4. 8 normal Not Available [facility] ([facility]) [address] [facility] [place], [address], 01/08/2025 06:12:45 01/08/20 25 01/08/2025 COMP. METAB OLIC PANEL (14) globulin, total 2.4 g/dL 1.5-4. 5 Not Available [facility] ([facility]) [address] [facility] [place], [address], 01/08/2025 06:12:45 01/08/20 25 01/08/2025 COMP. METAB OLIC PANEL (14) bilirubin, total 0.5 mg/dL 0.0-1. 2 normal Not Available [facility] ([facility]) [address] [facility] [place], [address], 01/08/2025 06:12:45 01/08/20 25 01/08/2025 COMP. METAB OLIC PANEL (14) alkaline phosphatase 91 IU/L 44-121 normal Not Available [facility] ([facility]) [address] [facility] [place] [place], [address], 01/08/2025 06:12:45 01/08/20 25 01/08/2025 COMP. METAB OLIC PANEL (14) AST (SGOT) 27 IU/L 0-40 normal Not Available [facility] ([facility]) [address] [facility] [place], [address], 01/08/2025 06:12:45 01/08/20 25 01/08/2025 COMP. METAB OLIC PANEL (14) ALT (SGPT) 22 IU/L 0-32 normal Not Available [facility] ([facility]) [address] [facility] [place], [address], 01/08/2025 06:12:45 01/08/20 25 01/08/2025 LIPID PANEL cholesterol, total 206 mg/dL 100-19 9 above high normal Not Available [facility] ([facility]) [address] [place], [address], 01/08/2025 06:12:46 01/08/20 25 01/08/2025 LIPID PANEL triglyceride s 73 mg/dL 0-149 normal Not Available [facility] ([facility]) [address] [place], [address], 01/08/2025 06:12:46 01/08/20 25 01/08/2025 LIPID PANEL HDL cholesterol 82 mg/dL >39 normal Not Available [facility] ([facility]) [address] [place], [address], 01/08/2025 06:12:46 01/08/20 25 01/08/2025 LIPID PANEL VLDL cholesterol edmund 13 mg/dL 5-40 Not Available [facility] ([facility]) [address] [place], [address], 01/08/2025 06:12:46 01/08/20 25 01/08/2025 LIPID PANEL LDL chol calc ([facility]) 111 mg/dL 0-99 above high normal Not Available [facility] ([facility]) [address] [place], [address], 01/08/2025 06:12:46 01/08/20 25 01/08/2025 LIPID PANEL LDL calc comment: GANG DRILL OPERATOR Not Available [facility] ([facility]) [address] [place], [address], 01/08/2025 06:12:46 01/08/20 25 01/08/2025 TSH RFX ON ABNOR MAL TO FREE T4 TSH 1.270 uIU/m L 0.450- 4.500 normal Not Available [facility] ([facility]) [address] [place], [address], 01/08/2025 06:12:46 10/21/19 24 10/19/2023 MAMMO , scree livia, digit al, bilat eral PROCED URE: MM Digita l Mammo Screen ing INDICA TION: Screen ing for breast cancer . No known palpab le abnorm alitie s. COMPAR MARIO: 020 and multip le earlie r studie s. TECHNI QUE: Full-f ield digita l CC and MLO 3D tomosy nthesi s images of both breast s were acquir ed. Comput er-aid ed detect ion (CAD) was utiliz ed in the interp retati on of this study. DENSIT Y: The breast tissue contai ns scatte red areas of fibrog landul ar densit y. FINDIN GS: No suspic ious masses , suspic ious microc alcifi cation s, or areas of vik ectura l distor tion are seen in either breast to sugges t malign ken. Stable asymme try anteri or upper right MLO view. Typica lly benign calcif icatio ns bilate rally. IMPRES KAYLEIGH: No mammog raphic eviden ce of malign ken. RECOMM ENDATI ON: Annual mammog raphic screen ing BI-RAD S: 2 (Benig n) Lay letter mailed to [place]o t WSN: [id number] Orderi ng Physic malia: Luigi Briscoe Dictat ed By: Yan Siddiqui MD Dictat ed Date/T deniz: 8:19 am Review ed By: Yan Siddiqui MD Signed By: Yan Siddiqui MD Signed Date/T deniz: 8:19 am Transc ribed By: CSB Transc riptio n Date/T deniz: 8:15 am Birads : [place] Class: Outpat ient [facility] ([facility]) [address] , [place], [address], 01/02/2024 11:49:29 10/21/19 24 10/21/2023 MAMMO , scree livia, bilat eral No observ ation record ed. [facility] [address], [place], [address], 01/02/2024 11:49:29 Result Notes Documentation Provider Name and Address Organization Details Recorded Time Mammo, Screening, Digital, Bilateral : PROCEDURE: MM Digital Mammo Screening INDICATION: Screening for breast cancer. No known palpable abnormalities. COMPARISON: 07/06/2020 and multiple earlier studies. TECHNIQUE: Full-field digital CC and MLO 3D tomosynthesis images of both breasts were acquired. Computer-aided detection (CAD) was utilized in the interpretation of this study. DENSITY: The breast tissue contains scattered areas of fibroglandular density. FINDINGS: No suspicious masses, suspicious microcalcifications, or areas of architectural distortion are seen in either breast to suggest malignancy. Stable asymmetry anterior upper right MLO view. Typically benign calcifications bilaterally. IMPRESSION: No mammographic evidence of malignancy. RECOMMENDATION: Annual mammographic screening BI-RADS: 2 (Benign) Lay letter mailed to patient WSN: [id number] Ordering Physician: Luigi Jenkins Dictated By: Kishor Siddiqui MD Dictated Date/Time: 10/21/23 8:19 am Reviewed By: Kishor Siddiqui MD Signed By: Kishor Siddiqui MD Signed Date/Time: 10/21/23 8:19 am Transcribed By: JOAQUÍN [employer] Operator Date/Time: 10/21/23 8:15 am Birads: Patient Class: Outpatient Luigi Jenkins MD [address], [address], [facility] 01/02/2024 11:49:29 Problems Name Problem SNOMED Code Status Onset Date Resolution Date Notes Provider Name and Address Organization Details Recorded Time Allergic rhinitis 36156728 Active 2012 Tisha galaviz [facility] 0 16:03:15 Tobacco user 650343755 Completed 201203/16/2014 RECORDED 08/12/20 13 1:00PM BY CHEIKH WALKER MA, ANNOTATI ON/ADDEN DUM Luigi Jenkins MD [address], [address] , [facility] [place] 6 08:57:52 History of clinical finding in subject [id number] Completed 201202/07/2015 RECORDED 08/12/20 13 1:00PM BY CHEIKH WALKER MA, ANNOTATI ON/MAISHA Jenkins MD [address] [facility] [address], [place], [address] , [facility] 6 08:57:52 Asthma 984338407 Active 2012 Tisha Dick null, [facility] 0 16:03:15 Screenin g for malignan t neoplasm of breast Completed 201103/16/2014 RECORDED 06/06/20 12 9:42AM BY LETTY RAMESH MA, ANNOTATI ON/MAISHA Jenkins MD [address] [facility] [address], [place], [address] , [facility] 6 08:57:52 Screenin g for malignan t neoplasm of cervix Completed 201203/16/2014 RECORDED 08/12/20 13 1:00PM BY CHEIKH WALKER MA, ANNOTATI ON/MAISHA Jenkins MD [address] [facility] [address], [place], [address] , [facility] 6 08:57:52 Screenin g for malignan t neoplasm of colon Completed 201103/16/2014 RECORDED 06/06/20 12 9:42AM BY LETTY RAMESH MA, ANNOTDIEGO ON/MAISHA Jenkins MD [address] [facility] [address], [place], [address] , [facility] 6 08:57:52 Divertic ular disease of colon 186871284 Active 2012 S/P COLECTOM Y-CELENA ON Tisha Dick null, [facility] 0 16:03:15 Tear film insuffic iency 57198628 Completed 201103/16/2014 RECORDED 06/06/20 12 9:42AM BY LETTY RAMESH MA, ANNOTATI ON/ADDEN DUM Luigi Jenkins MD [address] [facility] [address], [place], [address] , [facility] 6 08:57:52 Adult health examinat ion Completed 201302/07/2015 IMPRESSI ON: PT DECLINES FLU, PNEUMOVA X AT THIS TIME. ADVISED TO PURSUE ZOSTAVAX AT LOCAL PHARMACY . WILL SCREEN BASED ON RISK FACTORS. REGULAR DENTAL CARE AND SEATBELT USE ADVISED. DISTRACT ED DRIVING DISCUSSE D.; RECORDED 03/11/20 14 1:26PM BY HEMALATHA WILDER HISTORIC AL SUMMARY Luigi Jenkins MD [address] [facility] [address], [place], [address] , [facility] 6 08:57:52 Adult health examinat ion Completed 201203/16/2014 IMPRESSI ON: PT DECLINES FLU, PNEUMOVA X AT THIS TIME. ADVISED TO PURSUE ZOSTAVAX AT LOCAL PHARMACY . WILL SCREEN BASED ON RISK FACTORS. REGULAR DENTAL CARE AND SEATBELT USE ADVISED. 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 Tisha Dick null, [facility] 0 16:03:15 Irritabl e bowel syndrome 12580563 Completed 201201/10/2017 Luigi Jenkins MD [address] [address], [place], [address] , [facility] 7 14:11:28 Screenin g for malignan t neoplasm of breast Completed 201202/07/2015 RECORDED 08/13/20 13 7:41AM BY KADEN DICK, HISTORIC AL SUMMARY Luigi Jenkins MD [address] [facility] [address], [place], [address] , [facility] 6 08:57:52 Renewal of prescrip tion Completed 201103/16/2014 RECORDED 06/06/20 12 9:42AM BY LETTY RAMESH MA, ANNOTATI ON/ADDEN DUM Luigi Jenkins MD [address] [facility] [address], [place], [address] , [facility] 6 08:57:52 Osteopor osis 19882508 Active 2012 IMPRESSI ON: BEING MONITORE D/MANAGE D BY [employer] [facility] 0 16:03:15 Overweig ht [id number] Completed 201212/12/2015 IMPRESSI ON: POTENTIA L [facility] CONSE[facility] CTES RADHA [place]. WILL FOLLOW.; RECORDED 08/12/20 13 1:00PM BY CHEIHK WALKER MA, OFFICE VISIT Luigi Jenkins MD [address] [facility] [address], [place], [address] , [facility] 6 08:57:52 Influenz a vaccine needed [id number] 06 Completed 201103/16/2014 RECORDED 08/14/20 12 2:12PM BY LEEANN REN MA, OFFICE VISIT Luigi Jenkins MD [address] [facility] [address], [place], [address] , [facility] 6 08:57:52 Primary malignan t neoplasm of skin 82353161 Active 2012 [facility] 0 16:03:15 Non-toxi c uninodul ar goiter 433396323 Active 2012 Tisha galaviz, [facility] 0 16:03:15 Tobacco user [id number] Completed 201204/12/2014 RECORDED 08/12/20 13 1:00PM BY CHEIKH WALKER MA, ANNOTATI ON/MAISHA Jenkins MD [address] [facility] [address], [place], [address] , [facility] 6 08:57:52 Screenin g for malignan t neoplasm of breast Completed 201104/12/2014 RECORDED 06/06/20 12 9:42AM BY LETTY RAMESH MA, ANNOTDIEGO ON/MAISHA Jenkins MD [address] [facility] [address], [place], [address] , [facility] 6 08:57:52 Screenin g for malignan t neoplasm of cervix Completed 201204/12/2014 RECORDED 08/12/20 13 1:00PM BY CHEIKH WALKER MA, ANNOTDIEGO ON/MAISHA Jenkins MD [address] [facility] [address], [place], [address] , [facility] 6 08:57:52 Screenin g for malignan t neoplasm of colon Completed 201104/12/2014 RECORDED 06/06/20 12 9:42AM BY LETTY RAMESH MA, ANNOTDIEGO ON/MAISHA Jenkins MD [address] [facility] [address], [place], [address] , [facility] 6 08:57:52 Tear film insuffic iency [id number] Completed 201104/12/2014 RECORDED 06/06/20 12 9:42AM BY LETTY RAMESH MA, ANNOTDIEGO ON/MAISHA Jenkins MD [address] [facility] [address], [place], [address] , [facility] 6 08:57:52 Renewal of prescrip tion Completed 201104/12/2014 RECORDED 06/06/20 12 9:42AM BY LETTY RAMESH MA, ANNOTATI ON/ADDEN DUM Luigi Jenkins MD [address], [place], [address] , [facility] 6 08:57:52 Influenz a vaccine needed [id number] 06 Completed 201104/12/2014 RECORDED 08/14/20 12 2:12PM BY LEEANN REN MA, OFFICE VISIT Luigi Jenkins MD [address], [place], [address] , [facility] 6 08:57:52 Plantar fasciiti s 352446286 Completed 12/12/2015 Luigi Jenkins MD [address] [facility] [address], [place], [address] , [facility] 6 08:57:52 Achilles tendinit is 30582022 Completed 12/12/2015 Luigi Jenkins MD [address] [facility] [address], [place], [address] , [facility] 6 08:57:52 Body mass index 25-29 - overweig ht [id number] Completed 02/09/2019 MARIS Odonnell, [facility] 9 10:26:46 Gastroes ophageal reflux disease 474516226 Active Tisha galaviz [facility] 0 16:03:15 Abdomina l pain 55901485 Completed 12/12/2015 Luigi Jenkins MD [address] [facility] [address], [place], [address] , [facility] 6 08:57:52 Colitis 68498610 Completed 01/10/2017 Luigi Jenkins MD [address] [facility] [address], [place], [address] , [facility] 7 14:14:46 Impaired fasting glycemia 842658354 Completed 01/10/2017 Luigi Jenkins MD [address], [place], [address] , [facility] 7 14:14:31 Cough 46424505 Completed 12/12/2015 Luigi Jenkins MD [address] [facility] [address], [place], [address] , [facility] 6 08:57:52 Pharyngi tis 467480201 Completed 01/10/2017 Luigi Jenkins MD [address] [facility] [address], [place], [address] , [facility] 7 14:08:13 Stress fracture of tarsal bone 012937369 Completed 201610/15/2023 Luigi Jenkins MD [address] [facility] [address], [place], [address] , [facility] 4 08:57:48 Localize d, primary osteoart hritis of the ankle and/or foot 308122622 Active 2016 Tisha Dick null, [facility] 0 16:03:15 Osteoart hritis of joint of hand 62656943 Active 2017 Tisha Dick null, [facility] 0 16:03:15 Liver cyst 20139986 Active 2017 Tisha Dick null, [facility] 0 16:03:15 Adenomat ous polyp of colon 574242753 Active 2017 Tisha Dick null, [facility] 0 16:03:15 Sesamoid itis 83489502 Completed 201702/09/2019 Leeann Ren MA null, [facility] 9 10:26:40 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 851553750 Active 2018 Tisha galaviz, [facility] 0 16:03:15 History of Malignan t melanoma 456520556 Active 2018 left arm Tisha galaviz, [facility] 0 16:03:15 Pain of multiple joints 06060456 Active 2019 Luigi Jenkins MD [address] [address], [place], [address] , [facility] 0 14:37:00 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 90181283 Active 2020 Luigi Jenkins MD [address] [address], [place], [address] , [facility] 1 13:27:21 Hyperten sive encephal opathy 47924809 Completed 202106/05/2023 Luigi Jenkins MD [address] [address], [place], [address] , [facility] 3 22:17:53 Anti-nuc lear factor detected 969179060 Active 2021 Luigi Jenkins MD [address] [address], [place], [address] , [facility] 2 16:36:28 Cerebrov ascular accident 288747541 Completed 202110/09/2022 Luigi Jenkins MD [address] [address], [place], [address] , [facility] 3 09:46:27 Nuclear scleroti c cataract 961372535 Active 2021 Luigi Jenkins MD [address] [address], [place], [address] , [facility] 2 15:38:41 Chronic sinusiti s 80120132 Active 2021 Luigi Jenkins MD [address], [place], [address] , [facility] 2 16:34:47 Cerebral amyloid angiopat hy 866427424 Active 2021 Luigi Jenkins MD [address], [place], [address] , [facility] 2 20:55:39 Liver enzymes level above referenc e range 842105177 Completed 202106/06/2022 Luigi Jenkins MD [address], [place], [address] , [facility] 2 08:56:15 D-dimer above referenc e range 013201813 Active 2021 Luigi Jenkins MD [address], [place], [address] , [facility] 2 07:06:06 Dementia 98912132 Active 2022 mild Luigi Jenkins MD [address], [place], [address] , [facility] 3 14:43:20 History of cerebrov ascular accident 533930581 Active 2022 Luigi Jenkins MD [address], [place], [address] , [facility] 3 09:46:46 Osteoart hritis of left knee joint 06175094948 9109 Active 2022 moderate Luigi Jenkins MD [address], [place], [address] , [facility] 3 21:39:03 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 Procedures Surgical History Date Name Laterality Status Provider Name and Address Organization Details Recorded Time 10/20/19 25 Advanced Care Planning completed Luigi Jenkins MD [address], [address], [facility] 10/20/2024 12:35:54 01/07/20 24 Colonoscopy completed Luigi Jenkins MD [address], [address], [facility] 10/20/2024 11:22:54 10/19/19 24 Most Recent Mammogram completed Jolanta Stapleton [facility] 10/22/2023 09:34:27 10/19/19 24 Mammogram screening completed Priya Briones [facility] 10/22/2023 09:31:37 10/15/19 24 Advanced Care Planning completed Luigi Jenkins MD [address], [address], [facility] 10/15/2023 09:12:46 10/07/19 24 excision of squamous cell carcinoma completed Luigi Jenkins MD [address], [address], [facility] 10/15/2023 09:06:07 09/04/19 23 Excision of Melanoma completed Christine Pittman [facility] 10/09/2022 09:38:55 11/18/19 22 Echo transthoracic completed Luigi Jenkins MD [address] [facility], [place], [address], [facility] 11/21/2021 07:23:12 04/25/20 21 Cerumen Removal completed Luigi Jenkins MD [address] [facility] [address] [facility], [place], [address], [facility] 04/27/2021 23:06:56 08/03/20 20 Most Recent Bone Density completed Christine Pittman MA [facility] 10/20/2024 11:11:42 08/02/20 20 Six-Item Cognitive Test completed Leeann Ren MA [facility] 08/02/2020 13:58:24 02/10/20 19 Mini-Cog Test completed Leeann Ren MA [facility] 02/09/2019 10:32:24 06/02/20 18 Date of Last Colonoscopy completed Kizzy Hood [facility] 06/04/2018 12:00:58 02/06/20 18 Mini-Cog Test completed Leeann Ren MA [facility] 02/05/2018 10:05:56 02/01/20 18 excision of melanoma completed Aspen landin MA [facility] 07/28/2018 09:16:54 12/31/19 18 Dxa bone density eagle vrt fx completed Leeann Ren MA [facility] 02/09/2019 10:28:58 06/20/20 16 Date of Last Pap Smear completed Tisha Dick [facility] 01/24/2017 11:43:11 12/24/19 15 EGD completed Luigi Jenkins MD [address] [facility] [address] [facility], [place], [address], [facility] 12/26/2014 15:42:17 08/18/20 14 completed Leeann Ren MA [facility] 08/18/2014 11:02:42 07/12/20 11 completed Leeann Ren MA [facility] 08/18/2014 11:02:42 03/02/20 11 Laparo partial colectomy completed Luigi Jenkins MD [address] [facility] [address], [place], [address], [facility] 08/18/2014 11:28:40 02/01/20 06 ENT Surgery completed Leeann Ren MA [facility] 08/08/2021 11:11:18 09/02/18 70 Adenoidectomy completed Leenan Ren MA [facility] 08/02/2020 13:49:37 09/02/18 70 Tonsillectomy completed Leeann Ren MA [facility] 08/02/2020 13:49:37 Tonsillectomy completed Leeann damon MA [facility] 08/02/2020 13:49:37 Rhinoplasty completed Leeann Ren MA [facility] 08/02/2020 13:49:37 Imaging Results None recorded. Procedure Notes None recorded. Medical Equipment None Reported. Allergies Allergen ID Allergen Name Allergen Category Reaction Reaction Severity Criticality Documentation Date Start Date Code Code System Note Provider Name and Address Organization Details Recorded Time 81929 atorvasta tin medicatio n myalgias (muscle pain) Not available Not available 01/10/2017 17680 RxNorm MARIS Frances [facility] 3 09:33:03 57753 rosuvasta tin medicatio n myalgias (muscle pain) moderate Not available 02/05/2018 93285 2 RxNorm MARIS Frances [facility] 3 09:33:03 4133 alendrona te sodium medicatio n Not available Not available Not available 03/16/20142012 79712 2 RxNorm MARIS Frances [facility] 3 09:33:03 4134 erythromy juanito medicatio n diarrhea nausea Not available Not available Not available 03/16/20142012 4053 RxNorm Christine Pittman MA anastacia, [facility] 3 09:33:03 4135 morphine sulfate medicatio n nausea other Not available Not available Not available 03/16/20142012 23343 RxNokeven Pittman MA anastacia [facility] 3 09:33:03 4136 pravastat in sodium medicatio n myalgias (muscle pain) Not available Not available 03/16/2014201214 4 RxNorm Christine Pittman MA anastacia, [facility] 3 09:33:03 Medications Name Sig Start Date Stop Date Status Note LastModified by Organization Details LastModified Time azelastin e hcl 0.1 % soln active Not Available Not Available Not Available metronida zole 500 mg tabs active Not Available Not Available Not Available nasacort allergy 24hr 55 mcg/act aero active Not Available Not Available Not Available prednison e 10 mg tabs active Not Available Not Available Not Available levofloxa juanito 500 mg tabs active Not Available Not Available Not Available advair diskus 250-50 mcg/dose aepb 1 puff BID as needed 2023 active Not Available Not Available Not Avai lable levothyro xine sodium 100 mcg tabs TAKE 1 TABLET ONCE DAILY 10/09 completed Not Available Not Available Not Available omeprazol e 20 mg cpdr active Not Available Not Available Not Available iophen c-nr 100-10 mg/5ml liqd active Not Available Not Available Not Available hydrochlo rothiazid e 25 mg tabs active Not Available Not Available Not Available amoxicill in 500 mg capsule Take 4 capsules as needed by oral route. 05/19 completed TAKE 4 CAPSULES BY MOUTH 1 HOUR PRIOR TO DENTAL APPOINTM ENT Not Available Not Available Not Available furosemid e 40 mg tablet TAKE 1 TABLET EVERY DAY active Not Available Not Available No t Available fluticaso ne 250 mcg-salme terol 50 mcg/dose blistr powdr for inhalatio n INHALE 1 PUFF TWICE A DAY BY INHALATI ON ROUTE. 01/01 completed Not Available Not Available Not Available prednison e 10 mg tablet 4 tablets by mouth daily for 3 days, then 3 tablets by mouth daily for 3 days, then 2 tablets by mouth daily for 3 days, then 1 tablet by outh daily for 3 days. 10/09 completed Not Available Not Available Not Available doxycycli ne hyclate 100 mg capsule TAKE 1 CAPSULE BY MOUTH TWICE A DAY FOR 2 WEEKS 10/15 completed Not Available Not Available Not Available atorvasta tin 10 mg tablet Take 1 tablet every day by oral route for 30 days. 01/10 completed Not Available Not Available Not Available azithromy juanito 250 mg tablet TAKE 2 TABLETS (500 MG) BY ORAL ROUTE ONCE DAILY FOR 1 DAY THEN 1 TABLET (250 MG) BY ORAL ROUTE ONCE DAILY FOR 4 DAYS 04/27 completed Not Available Not Available Not Available ibuprofen 800 mg tablet Take by oral route for 3 days. 11/06 completed Not Available Not Available Not Available valacyclo vir 1 gram tablet Take by oral route for 8 days. 11/06 completed Not Available Not Available Not Available lisinopri l 20 mg tablet Take 1 tablet every day by oral route. 02/05 completed cough Not Available Not Available Not Available prednison e 20 mg tablet TAKE 2 TABLETS BY MOUTH EVERY DAY FOR 5 DAYS 10/20 completed Not Available Not Available Not Available penicilli n V potassium 500 mg tablet Take 1 tablet every 12 hours by oral route for 10 days. 01/10 completed Not Available Not Available Not Available metronida zole 500 mg tablet Take 1 tablet every 8 hours by oral route for 7 days. 02/09 completed Not Available Not Available Not Available ciproflox acin 500 mg tablet Take 1 tablet every 12 hours by oral route for 7 days. 02/09 completed Not Available Not Available Not Available aspirin 81 mg tablet,de layed release Take 1 tablet every day by oral route for 90 days. 01/13 completed Not Available Not Available Not Available amoxicill in 500 mg tablet TAKE 4 TABLETS BY MOUTH 1HR BEFORE SURGERY. TAKE WITH SMALL SIP OF WATER 04/25 completed Not Available Not Available Not Available levothyro xine 100 mcg tablet TAKE 1 TABLET EVERY DAY 2024 active Not Available Not Available Not Avai lable levothyro xine 88 mcg tablet Take 1 tablet every day by oral route for 90 days. 07/19 completed Not Available Not Available Not Available calcium 600 mg (as calcium carbonate 1,500 mg) tablet Take by oral route. 01/10 completed RECORDED 08/12/20 13 1:43PM BY LUIGI Willams MD, OFFICE VISIT; Not Available Not Available Not Available pravastat in 10 mg tablet DAILY 09/23 completed RECORDED 09/23/19 14 2:32PM BY RONEN GONZALEZ, ANNOTATI ON/MAISHA PIPER; Not Available Not Available Not Available imiquimod 5 % topical cream packet Apply TO precance rs ON HANDS AND head ONCE DAILY AT BEDTIME FOR THREE WEEKS] active PRN Not Available Not Available No t Available benzonata te 100 mg capsule Take 1 capsule 3 times a day by oral route as needed for 10 days. 10/15 completed Not Available Not Available Not Available triamcino lone acetonide 0.1 % topical ointment 02/09 completed Not Available Not Available Not Available lisinopri l 10 mg tablet TAKE 1 TABLET BY MOUTH EVERY DAY active Not Available Not Available No t Available valsartan 320 mg tablet Take 1 tablet every day by oral route for 90 days. active Not Available Not Available No t Available sertralin e 25 mg tablet TAKE 1 TABLET BY MOUTH EVERY DAY FOR 30 DAYS 10/05 completed Not Available Not Available Not Available omeprazol e 20 mg capsule,d elayed release TAKE 1 CAPSULE EVERY DAY active Not Available Not Available No t Available zinc gluconate 50 mg tablet Take 1 tablet every day by oral route. active Not Available Not Available No t Available codeine 10 mg-guaife nesin 100 mg/5 mL oral liquid Take 10 mL twice a day by oral route as needed. 10/09 completed Not Available Not Available Not Available Longs Adult Low Strength ASA 81 mg tablet,de layed release Take 1 tablet every day by oral route. 11/28 completed Not Available Not Available Not Available magnesium 250 mg tablet Take 1 tablet every day by oral route as directed . 11/21 completed Not Available Not Available Not Available hydrochlo rothiazid e 25 mg tablet TAKE 1 TABLET BY MOUTH EVERY DAY 08/08 completed Not Available Not Available Not Available mupirocin 2 % topical ointment MIX WITH GENTAMIC IN APPLY TO LEG WOUND TWICE DAILY [id number] active PRN Not Available Not Available No t Available furosemid e 20 mg tablet TAKE 1 TABLET EVERY DAY 05/19 completed Not Available Not Available Not Available lorazepam 1 mg tablet Take by oral route for 1 day. 11/06 completed Not Available Not Available Not Available azelastin e 137 mcg (0.1 %) nasal spray USE 2 SPRAYS NASALLY TWICE DAILY active Not Available Not Available No t Available levofloxa juanito 500 mg tablet Take 1 tablet every 24 hours by oral route for 7 days. 01/24 completed Not Available Not Available Not Available albuterol sulfate HFA 90 mcg/actua tion aerosol inhaler Inhale 2 puffs every 4 hours by inhalati on route as needed. 02/05 completed Not Available Not Available Not Available Carac 0.5 % topical cream 01/10 completed Not Available Not Available Not Available sertralin e 50 mg tablet TAKE 1 TABLET BY MOUTH EVERY DAY FOR 60 DAYS active Not Available Not Available No t Available gentamici n 0.1 % topical ointment APPLY TO WOUND DAILY FOR 2 WEEKS active PRN Not Available Not Available No t Available levothyro xine 112 mcg tablet Take 1 tablet every day by oral route for 90 days. 02/05 completed Not Available Not Available Not Available amoxicill in 875 mg-potass ium clavulana te 125 mg tablet TAKE 1 TABLET BY MOUTH EVERY 12 HOURS FOR 10 DAYS 10/20 completed Not Available Not Available Not Available Vitamin B-12 1,000 mcg tablet Take 1 tablet every day by oral route as directed . active Not Available Not Available No t Available valsartan 160 mg tablet TAKE 1 TABLET EVERY DAY 10/20 completed Not Available Not Available Not Available neomycin- polymyxin -hydrocor t 3.5 mg-10,000 unit/mL-1 % ear drops,shaka p Instill by otic route for 8 days. 08/08 completed Not Available Not Available Not Available Oyster Shell Calcium-V itamin D3 500 mg-5 mcg (200 unit) tablet TAKE 2 TABLETS EVERY DAY 2021 active Not Available Not Available Not Avai lable azithromy juanito 500 mg tablet 10/05 completed 01/02/24 NOT STARTED DUE TOS CRIPT SENT TO MAIL AWAY Not Available Not Available Not Available ciproflox acin 0.3 %-dexamet hasone 0.1 % ear drops,shaka pension Instill 4 drops every 12 hours by otic route for 7 days. 08/08 completed Not Available Not Available Not Available rosuvasta tin 5 mg tablet TAKE 1 TABLET EVERY EVENING FOR HIGH CHOLESTE ROL 2024 active Not Available Not Available Not Avai lable rosuvasta tin 20 mg tablet TAKE 1 TABLET EVERY EVENING 07/19 completed Not Available Not Available Not Available Multivita min 50 Plus tablet Take 1 tablet every day by oral route. active Not Available Not Available No t Available Readi-Cat 2 2.1 % (w/v), 2.0 % (w/w) oral suspensio n Take 450 mL twice a day by oral route as directed for 1 day. 08/02 completed Not Available Not Available Not Available calcium 250 mg (as carbonate )-vitamin D3 3.125 mcg (125 unit) tablet Take 2 tablets every day by oral route as directed . 08/02 completed Not Available Not Available Not Available zinc DIRECTED 08/14 completed RECORDED 08/14/20 12 2:08PM BY LEEANN REN MA, OFFICE VISIT; Not Available Not Available Not Available multivita min 08/14 completed RECORDED 08/14/20 12 2:08PM BY LEEANN REN MA, OFFICE VISIT; Not Available Not Available Not Available Multivita mins 1 tablet po daily 04/25 completed Not Available Not Available Not Available cholecalc iferol (vitamin D3) 25 mcg (1,000 unit) tablet 09/23 completed RECORDED 09/23/19 14 2:32PM BY BRAIN GILMORE ON/MAISHA PIPER; Not Available Not Available Not Available omeprazol e 20 mg tablet,de layed release Take 1 tablet every day by oral route for 30 days. 07/28 completed Not Available Not Available Not Available Actonel 150 mg tablet MONTHLY 09/13 completed RECORDED 10/24/19 13 1:52PM BY LUIGI Willams MD, MEDICATI ON AUTO-YAQUELIN CTIVATIO N; Not Available Not Available Not Available Calcium 500 mg + D (D3) 3.125 mcg (125 unit) tablet Take 2 tablets every day by oral route as directed . 12/01 completed restated last week after 3 months of not taking it Not Available Not Available Not Available GaviLyte- G 236 gram-22.7 4 gram-6.74 gram-5.86 gram oral solution 01/01 completed Not Available Not Available Not Available Probiotic and Acidophil us 300 million cell-250 mg capsule Take 1 capsule every day by oral route for 30 days. 2014 active Not Available Not Available Not Avai lable glucosam ahmadi dip-chond roit-C-Mn 2 tabs daily orally 11/21 completed Not Available Not Available Not Available Nasacort 55 mcg nasal spray aerosol Take 2 sprays every day by nasal route as needed. 2014 active Not Available Not Available Not Avai lable Caltrate- D3 Plus Minerals 300 mg-20 mcg-25 mg-0.5 mg tablet Take 1 tablet every day by oral route. 12/01 completed Not Available Not Available Not Available Readi-Cat 2 2 % (w/v) oral suspensio n TAKE 450 ML TWICE A DAY BY ORAL ROUTE DIRECTED FOR 1 DAY. 08/02 completed Not Available Not Available Not Available albuterol sulf 90 mcg/actua tion breath activated powder inhaler,s ensor Inhale 2 puffs every 4 hours by inhalati on route as needed. 05/19 completed Not Available Not Available Not Available Flowflex COVID-19 Antigen Home Test kit TEST DIRECTED TODAY 10/09 completed Not Available Not Available Not Available Vitals Date Recorded Body height Body mass index (BMI) Body weight Heart rate Oxygen saturation Oxygen saturation in Arterial blood by Pulse oximetry Body temperature Systolic And Diastolic Provider Name and Address Organization Details Last Updated DateTime 5 163.83 cm 23.5 kg/m2 11791.3 4 g 64 /min 96 % 96 % 97.9 [degF] 148/77 mm[Hg] Gee booth MA MA [facility] 5 11:22:01 Date Recorded Body height Body mass index (BMI) Body weight Heart rate Oxygen saturation Oxygen saturation in Arterial blood by Pulse oximetry Body temperature Systolic And Diastolic Provider Name and Address Organization Details Last Updated DateTime 4 163.83 cm 26 kg/m2 24162.2 2 g 69 /min 97 % 97 % 97.5 [degF] 164/70 mm[Hg] Gee booth MA [facility] 4 08:37:00 Date Recorded Body height Body mass index (BMI) Body weight Heart rate Oxygen saturation Oxygen saturation in Arterial blood by Pulse oximetry Body temperature Systolic And Diastolic Provider Name and Address Organization Details Last Updated DateTime 5 163.83 cm 23.3 kg/m2 27109.7 5 g 84 /min 98 % 98 % 97.3 [degF] 153/77 mm[Hg] Christine Pittman MA [facility] 5 11:08:48 Date Recorded Body height Body mass index (BMI) Body weight Heart rate Oxygen saturation Oxygen saturation in Arterial blood by Pulse oximetry Body temperature Systolic And Diastolic Provider Name and Address Organization Details Last Updated DateTime 4 163.83 cm 25 kg/m2 21271.6 7 g 73 /min 98 % 98 % 97.7 [degF] 116/68 mm[Hg] Christine Pittman MA [facility] 4 11:25:07 Date Recorded Body height Body mass index (BMI) Body weight Heart rate Oxygen saturation Oxygen saturation in Arterial blood by Pulse oximetry Body temperature Systolic And Diastolic Provider Name and Address Organization Details Last Updated DateTime 3 163.83 cm 25.4 kg/m2 63005.9 6 g 73 /min 98 % 98 % 98.2 [degF] 115/85 mm[Hg] Radha Duncan MA [facility] 3 10:01:04 Social History Question Answer Notes LastModified by Organizat ion Details LastModified Time Tobacco Smoking Status Former Smoker quit 1992 Not Available [employer] 07/05/2020 03:36:43 Do You Have An Advance Directive? Yes HCP/Agustin Neves Information not available 05/20/2023 Is Blood Transfusion Acceptable In An Emergency? Yes [id number] Information not available 07/05/2020 What Is Your Level Of Caffeine Consumption? Moderate Tea/coffee [id number] Information not available 07/05/2020 How Much Tobacco Do You Chew? None Information not available 08/02/2020 In The 14 Days Before Symptom Onset, Have You Had Close Contact With A Laboratory-confir med COVID-19 While That Case Was Ill? No Information not available 05/20/2023 In The 14 Days Before Symptom Onset, Have You Had Close Contact With A Person Who Is Under Investigation For COVID-19 While That Person Was Ill? No Information not available 05/20/2023 Have You Been To An Area Known To Be High Risk For COVID-19? No Information not available 05/20/2023 What Type Of Diet Are You Following? REGULAR [id number] Information not available 07/05/2020 Which Illicit Or Recreational Drugs Have You Used? None [id number] Information not available 07/05/2020 Education 2 Year College Information not available 05/20/2023 When Did You Quit Smoking? 16+yearssinc elastcigaret te Information not available 08/02/2020 Live Alone Or With Others? With Others (Pito) And 2 Dogs [email or web address] Information not available 10/15/2023 Do You Take Precautions To Prevent Distracted Driving? Yes [email or web address] Information not available 12/12/2015 How Often Do You Need To Have Someone Help You When You Read Instructions, Pamphlets, Or Other Written Material From Your Doctor Or Pharmacy? Never Information not available 02/09/2019 Have You Served In The ? No Information not available 01/10/2017 Have You Or Anyone In Your Household Had Any Of The Following Symptoms In The Last 14 Days: Sore Throat, Cough, Chills, Body Aches For Unknown Reasons, Shortness Of Breath For Unknown Reasons, Loss Of Smell, Loss Of Taste, Fever At Or Greater Than 100 Degrees Fahrenheit? No [email or web address] Information not available 04/27/2020 Are You Or Anyone In Your Household A Health Care Provider Or Emergency Responder? No [email or web address] Information not available 04/27/2020 To The Best Of Your Knowledge Have You Been In Close Proximity To Any Individual Who Tested Positive For COVID-19? No [email or web address] Information not available 04/27/2020 *AWV ONLY* Are You Presently Prescribed Opioid Medication By PCP Or Specialist? If YES -Provider Assess The Benefit For Other, Non-opioid Pain Therapies Instead, Even If The Patient Does Not Have OUD But Is Possibly At Risk. No Information not available 08/02/2020 Have You Recently Traveled To A COVID-19 High Risk Area Or Gathering In The Last 10 Days? No Information not available 08/08/2021 What Was The Date Of Your Most Recent Tobacco Screening? 10/15/2023 [email or web address] Information not available 10/15/2023 How Many Children Do You Have? 3 Sons [id number] Information not available 07/05/2020 What Is Your Current Pack Years? 30ormorepack years Information not available 05/20/2023 What Is Your Relationship Status? Information not available 05/20/2023 Do You Use Your Seat Belt Or Car Seat Routinely? Yes Information not available 08/08/2021 Seat Belts Used Routinely Yes Information not available 05/20/2023 Are You Sexually Active? No Information not available 08/02/2020 Smoke Alarm In Home Yes Information not available 05/20/2023 Do You Have Smoke And Carbon Monoxide Detectors In Your Home? Yes Information not available 08/08/2021 At What Age Did You Start Smoking Tobacco? 18 [id number] Information not available 07/05/2020 Are You Passively Exposed To Smoke? No Information no t available 01/10/2017 How Much Tobacco Do You Smoke? 1 PPD Information not available 08/08/2021 Do You Use Sunscreen Routinely? Yes [id number] Information not available 07/05/2020 How Many Years Have You Smoked Tobacco? 25 Information not available 05/20/2023 Sex: Unknown Functional Status Question Answer Note LastModified by Organizat ion Details LastModified Time Do you use any illicit or recreational drugs? No Information not available 05/20/2023 Do you or have you ever used any other forms of tobacco or nicotine? No Information not available 05/20/2023 What is your level of alcohol consumption? Occasional Information not available 10/09/2022 Do you or have you ever used smokeless tobacco? Never used smokeless tobacco Information not available 08/02/2020 Are you currently employed? No Information not available 08/02/2020 Are you able to walk? YESWOREST Information not available 05/20/2023 Are you able to care for yourself? Yes [id number] Information not available 07/05/2020 What is your occupation? Retired Information not available 08/08/2021 Do you or have you ever used e-cigarettes or vape? Never used electronic cigarettes Information not available 05/20/2023 What is your exercise level? Moderate walking Information not available 10/20/2024 Mental Status None recorded. Family History Relationship Description Onset Age of this Age Resolved Age Notes LastModified by Organization Details LastModified Time Father Malignant neoplastic disease prosta te, bladde r [email or web address] Not available 05/20/2023 13:23:57 Father Arthritis [email or web address] Not availa ble 12/12/2015 09:04:54 Mother Malignant neoplastic disease melano ma [email or web address] Not available 05/20/2023 13:23:57 Mother Disorder of thyroid gland [email or web address] Not available 12/11 09:04:54 Paternal Aunt Malignant tumor of breast [email or web address] Not available 12/11 09:04:54 Sister Well adult Not av ailable 05/20/2023 13:23:57 Sister Osteoporosis abolcun Not availa ble 08/02/2020 13:49:09 Sister Well adult [email or web address] Not av ailable 05/20/2023 13:23:57 Brother Transient cerebral ischemia [email or web address] Not available 13:23:57 Paternal Uncle Malignant tumor of colon [email or web address] Not available 01/10 14:08:46 Son Well adult [email or web address] Not av ailable 05/20/2023 13:23:57 Son Well adult [email or web address] Not av ailable 05/20/2023 13:23:57 Son Well adult [email or web address] Not av ailable 05/20/2023 13:23:57 Medical History Condition Response Arthritis Y Reflux/GERD Y Hyperthyroidism N High Cholesterol Y Acid Reflux (GERD) Y Thyroid Problems Y Diverticulitis Y Osteoporosis Y Hypothyroidism Y Asthma Y Gynecological History Statement/Question Response Date of Last Pap Smear 06/20/2016 Most Recent Mammogram 10/19/2023 08/18/2014 Date of Last Colonoscopy 06/02/2018 Most Recent Bone Density 08/03/2020 03/13/2011 Obstetrics History GPAL:G 0 P 0 0 0 0 Immunizations Vaccine Type Date Status Note Provider Name and Address Organization Details Recorded Time zoster live 016 completed MARIS Odonnell [facility] 08/08/2021 11:12:15 COVID-19, mRNA, LNP-S, PF, 30 mcg/0.3 mL dose 021 [facility] 11:12:15 COVID-19, mRNA, LNP-S, PF, 30 mcg/0.3 mL dose 021 completed MARIS Odonnell [facility] 08/08/2021 11:12:15 Influenza, adjuvanted, quadrivalent, PF 021 completed MARIS Odonnell [facility] 08/08/2021 11:12:15 COVID-19, mRNA, LNP-S, PF, 30 mcg/0.3 mL dose 021 completed MARIS Odonnell [facility] 08/08/2021 11:12:15 COVID-19, mRNA, LNP-S, bivalent, PF, 30 mcg/0.3 mL dose 022 completed MARIS Frances [facility] 07/19/2022 11:37:46 Influenza, adjuvanted, quadrivalent, PF 022 completed MARIS Frances [facility] 07/19/2022 11:37:46 Influenza, split virus, quadrivalent, PF 020 completed MARIS Frances [facility] 07/19/2022 11:37:46 Td (adult), 2 Lf tetanus toxoid, preservative free, adsorbed 020 completed MARIS Frances [facility] 07/19/2022 11:37:46 zoster recombinant 022 completed MARIS Frances [facility] 07/19/2022 11:37:46 pneumococcal polysaccharide PPV23 019 completed MARIS Frances [facility] 07/19/2022 11:37:46 Pneumococcal conjugate PCV 13 018 completed MARIS Frances [facility] 07/19/2022 11:37:46 zoster recombinant 023 completed MARIS Frances [facility] 10/09/2022 09:43:41 Influenza, high-dose, quadrivalent, PF 023 completed MARIS Méndez [facility] 07/11/2023 09:56:17 RSV, recombinant, protein subunit RSVpreF, adjuvant reconstituted, 0.5 mL, PF 023 completed MARIS Méndez [facility] 07/11/2023 09:56:17 COVID-19, mRNA, LNP-S, PF, lalit-sucrose, 30 mcg/0.3 mL 023 completed MARIS Méndez [facility] 07/11/2023 09:56:17 Pneumococcal conjugate PCV20, polysaccharide [id number] conjugate, adjuvant, PF 024 completed MARIS Frances [facility] 01/02/2024 11:16:23 Influenza, split virus, quadrivalent, PF 018 cancelled patient objection Not Available [facility] 09/19/2019 02:22:15 Influenza, high-dose, trivalent, PF 018 cancelled patient objection Not Available [facility] 09/19/2019 02:22:14 Tdap 010 completed Tisha Dick anastacia [facility] 10/29/2019 16:03:10 Influenza, high-dose, trivalent, PF 025 completed Luigi Jenkins MD [address], [address] 10/20/2024 12:35:32 Past Encounters Encounter ID Performer Location Encounter Start Date Encounter Closed Date Diagnosis/Indication Diagnosis SNOMED-CT Code Diagnosis ICD10 Code Diagnosis Note [id number] [address]Comm [address]ce [address] [place] [address],[address] [address] [place] [address] 08/14/2012 00:00:00 [id number] autoEComm erce [address] [place] [address],[facility] [address] [place] [address] 11/17/2012 00:00:00 [id number] [address] [place] [address],[facility] [address] [place] [address] 08/12/2013 00:00:00 [id number] Luigi Jenkins MD Main Office [address] [address] 08/18/2014 09:59:21 08/18/2014 11:50:08 Adult health examination [id number] Pt declined flu and was advised to pursue Zostavax at local pharmacy. Regular dental and ophtho care advised as well as setbelt and sunscreen use. Pt reports recent PAP will track down report. Colon and breast cancer screening are utd. Advance directives discussed. Body mass index 25-29 - overweight 494163199 Essential hypertension 50463189 Hyperlipidemia 36662729 Current risk profile does not warrant statin trial. Will monitor. TLC reinforced . Hypothyroidism 42955554 Osteoporosis 79394400 Fo llowed by meteorologist in charge. Pt reluctant to try another bisphospho manoj madelaine in the context of persistent GERD symptoms. Asthma 130146337 Mild persistent and currently well controlled . Continue current regimen. Gastroesop hageal reflux disease 165270595 Persistent symptoms despite PPI therapy. Will ask GI to consider EGD. [id number] Luigi Jenkins MD Main Office [address] [address] [place] [address] 02/07/2015 14:30:13 02/07/2015 15:37:16 Abdominal pain 90384325 Based on labs and imaging results from ED suspect infectious colitis. Will recheck labs off of abs and try probiotics for mild residual symptsoms. INB/worse will need to f/u with GI for colonoscop y. Colitis 38777675 [id number] Luigi Jenkins MD Main Office [address] [address] [place] [address] 02/16/2015 09:29:41 02/16/2015 10:12:24 Hyperlipidemia 58378551 Current risk profile does not warrant statin trial. Will monitor. TLC reinforced . Essential hypertension 98754658 Gastroesop hageal reflux disease 584386072 Well controlled without warning signs. Continue current regimen. Hypothyroidism 53486522 Clinically and biochemica lly euthyroid. Continue current regimen. Impaired f asting glycemia 559592245 Will follow. Low CHO diet and regular exercise advised. [id number] Luigi Jenkins MD Main Office [address] [address] [place] [address] 07/18/2015 13:13:45 07/18/2015 14:04:01 Cough 74537740 R05 No pneumonia on exam. Will defer abx unless infiltrate seen on exam, cough becomes productive or signs of sinusitis develop. Asthma 473155220 J45.21 Seems like viral illness is precipitat ing flare. Will try short prednisone taper. [id number] Luigi Jenkins MD Main Office [address] [address] [place] [address] 12/12/2015 08:24:04 12/12/2015 09:41:10 Adult health examination 765158533 Z00.00 Immunizati on status utd, advised to pursue Zostavax at local pharmacy and flu shot in the Fall. Regular dental and ophtho care advised as well as seat belt and sunscreen use. PAP utd. Colon and breast cancer screening are utd. Advance directives discussed and in place. Body mass index 25-29 - overweight 936087125 Z68.29 Essential hypertension 22653446 I10 Having some orthostati c symptoms. Will check ECG and labs. If normal and symptoms persiste will d/c diuretic. Hyperlipidemia 16083910 E78.5 Will try different statin to help reduce CV risk. Hypothyroidism 63364284 E03.9 Osteoporosis 61886991 M8 1.0 Followed by meteorologist in charge. Pt reluctant to try another bisphospho manoj madelaine in the context of persistent GERD symptoms. Asthma 576587010 J45.90 9 Mild persistent and currently well controlled . Continue current regimen. Gastroesop hageal reflux disease 681256592 K21.9 Will try decreasing PPI dosing frequency. Had nl EGD last year. Screening for malignant neoplasm of colon 067706385 Z12.11 Due for f/u in March. [id number] Luigi Jenkins MD Main Office [address] [facility] [address] [place] [address] 01/10/2017 13:20:47 01/10/2017 14:36:49 Adult health examination 263065319 Z00.00 Pneumovax offered but declined, flu advised in the Fall, immunizati ons otherwise utd. Regular dental and ophtho care advised as well as seat belt and sunscreen use. PAP utd. Breast cancer screening is utd. Due for colon cancer screening. Advance directives discussed and in place. Body mass index 25-29 - overweight 915847798 E66.3 Z68.25 Gastroesop hageal reflux disease 230660223 K21.9 Will try decreasing PPI dosing frequency. Had nl EGD in 2014. Hypothyroidism 85307188 E03.9 Clinically and biochemica lly euthyroid. Continue currne dosing. Hyperlipidemia 73046965 E78.5 Will try different statin to help reduce CV risk. Osteoporosis 92480718 M8 1.0 Followed by meteorologist in charge. Pt reluctant to try another bisphospho manoj madelaine in the context of persistent GERD symptoms. Refer to endo to discuss other treatment options. Due for bnd in the Fall. [id number] Luigi Jenkins MD Main Office [address] [facility] [address] [place] [address] 07/12/2017 08:07:06 07/12/2017 08:50:55 Essential hypertension 15964032 I10 Asthma 764443721 J45.90 9 Mild persistent and currently well controlled . Continue current regimen. Gastroesop hageal reflux disease 093652773 K21.9 Osteoporosis 66756484 M8 1.0 Will make endo appt to discuss other tx options. Due for f/u bone density. Hyperlipidemia 32279690 E78.5 Pt will start rosuvastat in and have labs done 6-8 weeks after. [id number] Luigi Jenkins MD Main Office [address] [facility] [address] [place] [address] 02/05/2018 09:45:58 02/05/2018 11:17:00 Adult health examination 626618325 Z00.00 Immunizati on status updated, and flu advised in the Fall. Regular dental and ophtho care advised as well as seat belt and sunscreen use. PAP utd. Breast cancer screening is utd. Due for colon cancer screening this year. Pt currently demonstrat es low risk for falls and no significan t cognitive decline. Advance directives discussed and in place. Administra tion of pneumococcal vaccine 33985885 Z23 Varicella vaccination 68 282982 Z23 Hand pain 92802397 M79.6 41 M79.642 Screen for lyme and inflammato ry arthritis. Consider ortho referral if OA present and pain is worse. Right uppe r quadrant pain 039070109 R10.11 Screen for hepatobili leobardo disease. Osteoporosis 70841489 M8 1.0 Intolerant to alendronat e. Will make endo appt to discuss other tx options. Body mass index 25-29 - overweight 949973816 E66.3 Z68.28 Gastroesop hageal reflux disease 154564578 K21.9 Resume PPI. Hypothyroidism 92651160 E03.9 Clinically and biochemica lly euthyroid. Continue current dosing. Hyperlipidemia 56344794 E78.5 Will reassess in August. Essential hypertension 20084785 I10 Well controlled , continue current regimen. Screening for malignant neoplasm of colon 319027269 Z12.11 Due for f/u in March. Carotid bruit 384476738 R09.89 [id number] Loy Kay PA-C Main Office [address] [facility] [address] [place] [address] 07/28/2018 09:05:36 07/28/2018 10:12:11 Immunization refused 062212515 Z28.21 Collagenous colitis 1931 1003 K52.831 possible microscopi c colitis - will rx as such - rx c abx, check ct a/p, labs - rec probiotics too unlikely UC since just had recent colonoscop y (normal x for polypectom y) *will fwd this note to GI* Painful re ctal bleeding 802691288 K62.5 see above Diarrhea 29650195 R19.7 see above [id number] Luigi Jenkins MD Main Office [address] [address] [place] [address] 02/09/2019 10:11:40 02/09/2019 11:21:57 Adult health examination 432315855 Z00.00 Immunizati on status updated, flu advised in the Fall, and Shingrix via local pharmacy. Regular dental and ophtho care advised as well as seat belt and sunscreen use. PAP utd. Breast and colon cancer screening are utd. Pt currently demonstrat es low risk for falls and no significan t cognitive decline. Advance directives discussed and in place. Varicella vaccination 68 104077 Z23 Screening for malignant neoplasm of breast 947487096 Z12.39 Administra tion of pneumococcal vaccine 04788123 Z23 Osteoporosis 88838909 M8 1.0 Intolerant to alendronat e. Was supposed to get Reclast but cancelled because of acute infection. Will call endo to arrange f/u. Body mass index 25-29 - overweight 415821740 E66.3 Z68.28 Gastroesop hageal reflux disease 344100114 K21.9 No warning signs, continue PPI. Hypothyroidism 59353995 E03.9 Clinically and biochemica lly euthyroid. Continue current dosing. Hyperlipidemia 99640774 E78.5 Will reassess in August. Essential hypertension 28041307 I10 Well controlled , continue current regimen. [id number] Luigi Jenkins MD Main Office [address] [facility] [address] [place] [address] 08/11/2019 09:55:41 08/11/2019 10:38:48 Essential hypertension 65815155 I10 Well controlled , continue current regimen. Hyperlipidemia 08747037 E78.5 Will reassess before next appt Hypothyroidism 21581748 E03.9 Clinically euthyroid, biochemica lly hyperthyro id. Continue current dosing. Edema of l ower extremity 889063584 R60.0 post traumatic which is healing well. Reassuranc e provided will monitor. Gastroesop hageal reflux disease 419965128 K21.9 No warning signs, continue PPI. [id number] Luigi Jenkins MD Main Office [address] [place] [address] 11/24/2019 11:39:02 11/24/2019 12:26:55 Mild intermittent asthma 936319796 J45.20 Suspect that her dyspnea is related to her asthma secondary to possible pneumonia. Will see if prednisone helps. Consider ICS depending on response. Pneumonia 860236870 J18. 9 If chest pain persists or fever develops will need further evaluation . Advised to [facility]. [id number] Grant Torres MD Main Office [address] [place] [address] 04/27/2020 11:22:26 04/27/2020 12:02:55 Upper abdominal pain 28544630 R10.10 Abdominal pain 80226656 R10.9 Diarrhea 51022813 R19.7 [id number] Luigi Jenkins MD Main Office [address] [address] 08/02/2020 13:38:56 08/02/2020 14:51:10 Adult health examination 873960471 Z00.00 Immunizati on status updated. Shingrix via local pharmacy. Regular dental and ophtho care advised as well as seat belt and sunscreen use. PAP utd. Breast and colon cancer screening are utd. Pt currently demonstrat es low risk for falls and no significan t cognitive decline. Advance directives discussed and in place. Varicella vaccination 68 356484 Z23 Requires a tetanus booster 532026026 Z23 Essential hypertension 11054932 I10 Well controlled , continue current regimen. Screening for malignant neoplasm of cervix 779824095 Z12.4 Osteoporosis 11847436 M8 1.0 Intolerant to alendronat e. Was supposed to get Reclast but cancelled because of acute infection. Will recheck BND and ask rheum for assistance with this. Pain of mu ltiple joints 49937286 M25.50 Myalgia/my ositis - multiple 280110257 M79.10 Needs infl uenza immunization 005691287 Z23 Hypothyroidism 51978381 E03.9 Clinically euthyroid, biochemica lly hyperthyro id. Continue current dosing. Gastroesop hageal reflux disease 049722941 K21.9 No warning signs, continue PPI. Hyperlipidemia 72132285 E78.5 Will reassess before next appt [id number] Luigi Jenkins MD Main Office [address] [facility] [address] [place] [address] 04/25/2021 12:38:00 04/25/2021 13:35:52 Essential hypertension 90590613 I10 Not at goal today but acute issues are likely contributi ng Will continue current regimen and pt to call if home BP is consistent ly >140/90. Hypothyroidism 53541621 E03.9 Clinically and biochemica lly euthyroid Continue current dose Gastroesop hageal reflux disease 450226300 K21.9 No warning signs, continue PPI. Osteoporosis 90749010 M8 1.0 Intolerant to alendronat e. Was supposed to get Reclast but cancelled because of acute infection. Following with rheum. Hyperlipidemia 64270438 E78.5 Will reassess before next appt Otitis ext dominick of left ear 2689048309 258407 H60.92 WIll resume/com plete course of therapy and call inb/worse. Impacted c erumen in left ear 6365448090 279655 H61.22 suspect her OE is the cause. Disimpacti on attempted with currette but not tolerated. Irrigation more successful . [id number] Luigi Jenkins MD Main Office [address] [facility] [address] [place] [address] 08/08/2021 10:55:29 08/08/2021 12:12:48 Adult health examination 972650194 Z00.00 Immunizati on status updated. Shingrix via local pharmacy. Regular dental and ophtho care advised as well as seat belt and sunscreen use. PAP utd. Breast and colon cancer screening are utd. Pt currently demonstrat es low risk for falls and no significan t cognitive decline. Advance directives discussed and in place. Varicella vaccination 68 623336 Z23 Essential hypertension 68171113 I10 Not at goal again today and HCTZ could be a factor if her toe pain is gout related. Will switch to lisinopril and check CMP 2 weeks after. Pt advised of common and potentiall y serious medication side effects. Hypothyroidism 69490191 E03.9 Clinically euthyroid, will reassess labs. Continue current dose for now Hyperlipidemia 52438625 E78.5 Orders pending. Will reassess before next appt Screening for malignant neoplasm of breast 246707075 Z12.39 Pain of to e of left foot 7544629547 98471 M79.675 ? gout but also in the same foot which sustained a fracture. Will see if prednisone helps. Will need imaging and rheum f/u inb/worse. Screening for malignant neoplasm of cervix 246447091 Z12.4 Body mass index 25-29 - overweight 558952866 E66.3 Z68.27 [id number] Luigi Jenkins MD Main Office [address] [facility] [address] [facility] [place] [address] 11/06/2021 09:53:07 11/06/2021 10:48:30 Essential hypertension 38582572 I10 Seems salt sensitive so will try resuming different diuretic. Hopefully loop diuretic is tolerated. Hyperlipidemia 18407512 E78.5 Fair control but if MRI shows vascular disease will need to be more aggressive . Dizziness 795633825 R42 Will risk factors/co morbiditie s will screen for posterior circulatio n and inner ear disease. [id number] Luigi Jenkins MD Main Office [address] [facility] [place] [address] 11/14/2021 15:27:56 11/14/2021 16:17:36 Acute sinusitis 69497978 J01.90 Will treat for sinusitis. Extend course/con sult ENT if persistent /worse Essential hypertension 95323092 I10 Responding to diuretic and ACEI. Will titrate ACEI dose. Pt will go for labs in 1-2 weeks. Hypertensi ve encephalopathy 90628747 I67.4 Will assess cardiac anatomy to look for LVH and valvular disease that might be a factor. Cerebral hemorrhage 2741 27156 I61.9 Most likely related to poor hypertensi on control but not entirely clear as there was also a report of infarct. Besides OTC NSAID for OA pt is not on any blood thinning agents. With her weakly positive ISAURO in the past will screen for vasculitis and coagulopat hy. Will ask neurology for assistance with evaluation and interpreta tion of results. Anti-nucle ar factor detected 946195522 R76.8 Cerebrovas cular accident 752859238 I63.9 [id number] Luigi Jenkins MD Main Office [address] [facility] 207 [facility] [place] [address] 11/21/2021 15:39:03 11/21/2021 15:45:42 [id number] Luigi Jenkins MD Main Office [address] [facility] 207 [facility] [place] [address] 11/28/2021 10:59:46 11/28/2021 11:59:33 Cerebrovascular accident 648304097 I63.9 Has had several small events seemingly most likely related to hypertensi ve vascular disease. MRA findings, negative vasculaiti sc w/u (so far) as well as normal ECHO are reassuring . Will refer to cardiology to see if extended monitoring is warranted. We are still trying to establish pt with outpt neurology consultati on. Pt is exploring options in [place], we are waiting to hear back from [facility]. Acute sinusitis 45892796 J01.90 Will extend treatment course for sinusitis given persistent dizziness/ fatigue. Consult ENT if persistent /worse or sinus imaging remains abnl. Essential hypertension 41306330 I10 Well controlled on ACEI. Will hold diuretic for now. Hyperlipidemia 45558740 E78.5 Tolerating statin dose increase well. Will reassess lipids before next appt. Hypothyroidism 56824164 E03.9 Clinically euthyroid, will reassess labs. Continue current dose for now [id number] Grant Torres MD [facility] [address] [facility] [address] [facility] [place] [address] 01/18/2022 08:20:50 01/18/2022 16:07:16 Community acquired pneumonia 533418609 J18.9 [id number] Luigi Jenkins MD Main Office [address] [place] [address] 02/05/2022 09:58:12 02/05/2022 11:10:44 Essential hypertension 38507068 I10 Well controlled on ACEI, but will switch to ARB because of cough. 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 Delatorre. Pt is upset but overall coping with diagnosis and prognosis. Asthma 746344131 J45.31 Will resume previously effective ICS, and extend course of prednisone /taper. Allergic rhinitis 191377 04 J30.9 Chronic sinusitis 114278 00 J32.9 Has not followed up with ENT because neuro advised her that she does not have sinus disease? Liver enzy mes level above reference range 011686424 R74.01 Possibly related to infection/ therapy vs statin. Will hold and monitor. Hyperlipidemia 69251777 E78.5 Screen for myositis. 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 Persistent cough 1497698 02 R05.3 If infiltrate present will treat for pneumonia. Dyspnea at rest 51280541 7 R06.00 If d-dimer elevated will need PE rule out. No evidence for DVT. Tachycardia 7178454 R00. 0 Possibly related to pain/stres s from illness, but also raises concern for PE. Reports good hydration practices. [id number] Luigi Jenkins MD Main Office [address] [facility] 207 [facility] [place] [address] 07/19/2022 11:28:37 07/19/2022 12:18:18 Pneumonia 491900159 J18.9 Will cover for atypical PNA, check CXR if symptoms aren't improving over the next 5-7 days. Advised to call inb/worse. Asthma 246939109 J45.31 Will continue ICS, and try steroid burst. Extend course to taper if not improving. Persistent cough 8811393 02 R05.3 Exacerbati on of intermittent asthma 828990166 J45.21 [id number] Luigi Jenkins MD Main Office [address] [facility] [address] [place] [address] 10/09/2022 09:23:27 10/09/2022 10:21:58 Adult health examination 328454750 Z00.00 Immunizati on status utd. Regular dental and ophtho care advised as well as seat belt and sunscreen use. PAP utd. Breast and colon cancer screening are utd. Pt currently demonstrat es low risk for falls and no significan t cognitive decline. Advance directives discussed and in place. Screening for malignant neoplasm of breast 430322392 Z12.39 Bone density finding 385 104302 M85.89 Body mass index 25-29 - overweight 225290447 E66.3 Z68.25 Dementia 84760473 F03.90 Mild, monitoring with neuro. Hypertensi ve encephalopathy 47064532 I67.4 Cerebral a myloid angiopathy 595745144 I68.[address] Delatorre. Pt is upset but overall coping with diagnosis and prognosis. History of cerebrovascular accident 426856622 Z86.73 Following with neuro, working on risk factor control (lipids). Osteoporosis 83491992 M8 1.0 Intolerant to alendronat e/risondro manoj. Was supposed to get Reclast but cancelled because of concern regarding symptoms. Will reassess and if progressin g consider different agents. Hypothyroidism 36222151 E03.9 Clinically euthyroid, will reassess labs. Continue current dose for now Adenomatou s polyp of colon 399392079 D12.6 Due for f/u in the Fall. Needs new GI provider with [facility] . Hyperlipidemia 42185884 E78.5 Off of statin. Will reassess CVD and if >7.5% discuss resuming low dose stain. Essential hypertension 99395282 I10 Well controlled on ARB continue current regimen. Mild persi stent asthma controlled 5316280610 2581534 J45.30 [id number] Luigi Jenkins MD Main Office [address] [facility] 207 [facility] [place] [address] 05/20/2023 13:23:20 05/20/2023 14:23:54 Hypothyroidism 44865604 E03.9 Clinically euthyroid, will reassess labs. Continue current dose for now Cerebral a myloid angiopathy 268326078 I68.[address] Delatorre. Pt is upset but overall coping with diagnosis and prognosis. Osteoporosis 67454971 M8 1.0 Intolerant to alendronat e/risondro manoj. Was supposed to get Reclast but cancelled because of concern regarding symptoms. Pt refusing treatment for this issue at this time. Essential hypertension 28690237 I10 Well controlled on recheck with ARB continue current regimen. Hyperlipidemia 13217953 E78.5 On rosuvastat in and tolerating current dosage. Will reassess CVD and if >7.5% discuss resuming low dose stain. [id number] Luigi Jenkins MD Main Office [address] [facility] [address] [facility] [place] [address] 07/11/2023 09:51:34 07/11/2023 10:59:52 Cough 72753622 R05.9 x 3 wks, most likely has blossoming pna - see belowcont mucinexno tolerate miesha ac last yr, will give prn tessalon Pneumonia 809875875 J18. 9 tolerated doxy last year - will rx c this againrecom mend probiotics while on abx Asthmatic bronchitis 405 394865 J45.909 will give pred taper as she responded to this last yr Gastroesop hageal reflux disease 524208799 K21.9 cont ppi qd, could increase to bid temp if needed [id number] Luigi Jenkins MD Main Office [address] [facility] 207 [facility] [place] [address] 10/15/2023 08:22:20 10/15/2023 09:27:40 Adult health examination 141677240 Z00.00 Immunizati on status utd. PCV20 encouraged . Regular dental and ophtho care advised as well as seat belt and sunscreen use. PAP utd. Breast screening utd. Due for colon cancer screening. Pt currently demonstrat es low risk for falls and no significan t cognitive decline. Advance directives discussed and in place. Osteoporosis 50326067 M8 1.0 Intolerant to alendronat e/risondro manoj. Was supposed to get Reclast but cancelled because of concern regarding symptoms. Pt refusing treatment for this issue at this time. Hypothyroidism 90498976 E03.9 Clinically euthyroid, will reassess labs. Continue current dose for now Hyperlipidemia 85237264 E78.5 Intolerant to several statins. PSK9 inhibitor discussed, pt defers at this time. Gastroesop hageal reflux disease 287167566 K21.9 No warning signs, continue PPI. Essential hypertension 40956401 I10 Not well controlled today, excellent in Jul. Will reassess at f/u and titrate valsartan if >130/90. Dementia 31602310 F03.90 Mild, monitoring with neuro. Will request records. Cerebral a myloid angiopathy 346846961 I68.[address] Delatorre. Overall coping with diagnosis and prognosis. Asthma 172544027 J45.31 Adenomatou s polyp of colon 011386508 D12.6 Has appt with [facility] on 12/26. At [facility] risk for falls 396674570 Z91.81 Agrees to try PT for balance. Small vess el cerebrovascular disease 965399031 I63.9 Risk factors currently not well controlled . Will monitor and reasess . Administra tion of pneumococcal vaccine 39764372 Z23 Advance di rective discussed with patient 254545602 Z71.89 MOLST form provided, pt will review with her HCP's and return at next visit for finalizati on. Screening for malignant neoplasm of breast 712034548 Z12.39 Basal cell carcinoma of skin 164177019 C44.91 Recovering from recent Mohs procedure on RLE. [id number] Luigi Jenkins MD Main Office [address] [facility] 207 [facility] [place] [address] 01/02/2024 10:52:56 01/02/2024 12:02:08 Essential hypertension 36126439 I10 Well controlled today, excellent in Jul. Will reassess at f/u and titrate valsartan if >130/90. Intestinal infection caused by Campylobacter jejuni 922475246 A04.5 Will request GI notes and wait to see how symptoms respond to course of azithro. Dementia 64745944 F03.90 Mild, monitoring with neuro. Will request records. Hyperlipidemia 74553067 E78.5 Intolerant to several statins. PSK9 inhibitor discussed, pt defers at this time. In context of mild CVD risk elevation and comorbidit ies i don't necessaril y disagree. [id number] Luigi Jenkins MD Main Office [address] [facility] [address] [place] [address] 10/05/2024 10:54:10 10/05/2024 11:56:36 Headache 71200376 R51.9 No acute neuro findings on exam today. Will check labs and reassess in 2-3 weeks. If persistent /worse will consider f/u brain imaging. Will also request neurology notes. Recurrent acute sinusitis 397985990 J01.91 Possible secondary sinus infection as the cause of her symptoms. Essential hypertension 81534378 I10 Fair control today, reassess after DERAS/acute issues resolve. Hypothyroidism 98533227 E03.9 Clinically euthyroid, will reassess labs. Continue current dose for now [id number] Luigi Jenkins MD Main Office [address] [facility] [address] [place] [address] 10/20/2024 10:51:30 10/20/2024 11:55:51 Adult health examination 396076716 Z00.00 COVID advised via local pharmacy. Regular dental and ophtho care advised as well as seat belt and sunscreen use. Colon, cervical and breast screening utd. Pt currently demonstrat es low risk for falls and no significan t cognitive decline. Advance directives discussed and in place. Screening for malignant neoplasm of breast 350553928 Z12.39 Defer mammograph y this year Osteoporosis 82404986 M8 1.0 Intolerant to alendronat e/risondro manoj. Was supposed to get Reclast but cancelled because of concern regarding symptoms. Pt refusing treatment for this issue at this time. Hypothyroidism 58501829 E03.9 Clinically euthyroid, biochemica lly hypo, will reassess labs. Continue current dose for now Hyperlipidemia 53318248 E78.5 Intolerant to several statins. PSK9 inhibitor discussed, pt defers at this time. Gastroesop hageal reflux disease 705997590 K21.9 No warning signs, continue PPI. Essential hypertension 39546276 I10 Not well controlled again today. Will titrate ARB dose and monitro labs closely. Dementia 23050541 F03.90 Mild, monitoring with neuro. Cerebral a myloid angiopathy 529234869 I68.[address] Delatorre. Overall coping with diagnosis and prognosis. Asthma 067606285 J45.31 Symptoms well controlled based on rescue inhaler use. Will monitor. Adenomatou s polyp of colon 256875054 D12.6 Asymptomat ic and screening utd, due n 2028 if appropriat e. [facility] 546153956 Z91.81 No falls in past year, declines PT/balance therpay referral. Small vess el cerebrovascular disease 795343988 I63.9 Risk factors currently not well controlled . Will monitor and reassess . Advance di rective discussed with patient 679794096 Z71.89 MOLST form reviewed/c omplete and scanned into chart. Influenza vaccine needed 1088649254 106 Z23 65 YEARS AND OLDER Health Concerns Section Related Observation LastModified by Organization Detai ls LastModified Time None Recorded Concern Status LastModified by Organization Details LastModified Time None Recorded Advance Directives Directive Y: HCP/-Bill Payers Insurance Date Sequence Insurance Name Policy Number Policy Marroquin Covered Member ID Marroquin Member ID Guarantor Name 10/05/2024 1 [place] [facility] Gissell M Deepak [id number] Gissell Perry Deepak 10/05/2024 1 [employer] (MEDICARE REPLACEMENT/ ADVANTAGE - PPO) Gissell M Deepak [id number] Gissell Orlando Jessup 02/01/2025 1 [place] [employer] Gissell M Deepak [id number] Gissell Orlando Deepak 10/05/2024 [employer] (MEDICARE REPLACEMENT/ ADVANTAGE - PPO) Gissell M Deepak [id number] Gissell Orlando Jessup 10/05/2024 1 [place] [employer] Gissell M Deepak [id number] Gissell Orlando Jessup 10/05/2024 2 [place] [facility] Gissell M Deepak [id number] Gissell Perry Deepak 02/07/2015 1 [facility] - MEDICAID ESSENTIAL (MEDICAID HMO) [id number] Pito Jessup [id number] Gissell Perry Jessup 10/05/2024 1 [employer] - CHOICECARE (PPO) Gissell Perry Deepak [id number] Gissell Perry Jessup 01/09/[address] [place] [address] ([facility] [id number] Pito Deepak [id number] Gissell M Deepak Notes Date Note Type Note Provider Name and Address Organization Details Recorded Time 07/11/20 23 text/htm l Pt complains of a cough for the past 3 weeks,she says she is getting coughing spells. Pt tested negative for Covid x 3 + h/o asthma - but typically only bothers her in the spring, but does recall taking abx/pred last fallrev chart - ov 11.22 for similar - did need a prolonged steroid taper has deep cough, occ green+ sob c coughing fitno inhalers lately but does have alb at home using delsym c minimal help Loy Kay PA-C [address], [address], [facility] 07/11/2023 10:59:47 10/15/19 24 text/htm l Medicare Annual Wellness VisitReported bypatient.Diet and Nutrition:healthy diet Fracture Risk:history of fractures; Stress fractures in feet. Osteoarthritis Degenerative bone disease Physical Activity:exercises on a regular basis; good physical condition Depression Risk:no significant changes in weight; no sleep disturbances or insomnia; no history of depression; no history of mood disorders;feels sad, empty, or tearful Orientation:no disorientation to time; no disorientation to place;disorientation to date Concentration and Memory:no decreased concentrating ability; no memory lapses or loss; does not forget words Speech/Motor difficulties:no speech difficulties; no difficulty expressing formulated concepts; no difficulty with fine manipulative tasks; no difficulty writing/copying; no slowed reaction time; does not knock things over when trying to pick them up Hearing:no loss of hearing Vision:no vision problems Activities of Daily Living:able to bathe with limited or no assistance; able to contol urination and bowels; able to dress with limited or no assistance; able to feed self with limited or no assistance; able to get out of chair or bed with limited or no assistance; able to groom with limited or no assistance; able to toilet with limited or no assistance Instrumental Activities of Daily Living:able to grocery shop with limited or no assistance; able to manage medications with limited or no assistance; able to manage money with limited or no assistance; able to prepare meals with limited or no assistance; able to use the phone with limited or no assistance;unable to do house work without assistance Falls Risk Assessment:no frequent falls while walking; no dizziness/vertigo; fall(s) in the past year 1; fall(s) since last visit1 Home Safety:no unsafe diana hazzards; working smoke/CO detectors; use of seatbelts; no fire arms; good lighting in the home;does not have hand bars in the bathroom/shower Luigi Jenkins MD [address] [address], [place], [address], [facility] 10/23/2023 22:46:59 01/02/20 24 text/htm l DementiaReported bypatient.Quality:forgetting names or everyday words Severity:moderate Associated Symptoms:no anxiety; no irritability or agitation;depressionNotes:Sta rted on sertraline by neuro, since then she has been crying less.HyperlipidemiaReported bypatient.Type of hyperlipidemia:combined Control:usually poorly controlled;not at goal Current Therapy:currently taking:; last cholesterol level: (251); last LDL level: (155); last triglyceride level: (55); last HDL level: (85) Compliance:compliant; exercises;noncompliant with diet Complications:no coronary artery disease; no peripheral artery disease; no cardiovascular disease Risk Factors:hypertensionNotes:Did not tolerate pravastatin, atorvastatin or rosuvastatin.Hypertension F/UReported bypatient.Associated Symptoms:no dizziness; no lightheadedness; no chest pain; no shortness of breath Lifestyle:regular exercise;high salt intake Medications:taking medications as directed; no side effects from medicationThyroidReported bypatient.Quality:not changing Severity:mild Context:normal thyroid levels Associated Symptoms:no cold intolerance; no heat intolerance; no weight loss; no weight gain Seen by GI since last visit and work up for her diarrhea showed campylobacter in her stool. Silvioithro is in the mail for treatment Luigi Jenkins MD [address] [address], [place], [address], [facility] 01/02/2024 12:55:02 10/05/19 25 text/htm l HeadacheReported bypatient.Location:occipital Quality:not the worst headache ever; similar to previous headaches Severity:moderate; pain level 5/10 Duration:intermittent Onset/Timing:better Context:not related to trauma Associated Symptoms:no vomiting; no sensitivity to light; no confusion; no preceeding aura; no double vision; no dizziness; no sleep disturbances; no nosebleeds; no hoarseness; no sore throatNotes:States that she has has a posterior DERAS for 1 months but worse over past 7-10 days. Was seen by her neurologist when she had this last months and reassured. No correspondence received from neuro. Has a history of recurrent sinusitis and states that she did have URI symptoms prior to start 4 weeks ago. Luigi Jenkins MD [address], [address], [facility] 10/05/2024 12:49:08 10/20/19 25 text/htm l Medicare Annual Wellness VisitReported bypatient.Diet and Nutrition:healthy diet Fracture Risk:no recent explained fracture; no sudden unexplained fractures; no previous musculoskeletal injuries;history of fractures; Stress fractures in feet. Osteoarthritis Degenerative bone disease Physical Activity:exercises on a regular basis; good physical condition;decreased physical activity Depression Risk:never feels sad, empty, or tearful; no loss of interest in activities; no significant changes in weight; no sleep disturbances or insomnia; no history of depression; no history of mood disorders Orientation:no disorientation to time; no disorientation to place;disorientation to date Concentration and Memory:no decreased concentrating ability; no memory lapses or loss; does not forget words Speech/Motor difficulties:no speech difficulties; no difficulty expressing formulated concepts; no difficulty with fine manipulative tasks; no difficulty writing/copying; no slowed reaction time; does not knock things over when trying to pick them up Hearing:no loss of hearing Vision:no vision problems Activities of Daily Living:able to bathe with limited or no assistance; able to contol urination and bowels; able to dress with limited or no assistance; able to feed self with limited or no assistance; able to get out of chair or bed with limited or no assistance; able to groom with limited or no assistance; able to toilet with limited or no assistance Instrumental Activities of Daily Living:able to grocery shop with limited or no assistance; able to manage medications with limited or no assistance; able to manage money with limited or no assistance; able to prepare meals with limited or no assistance; able to use the phone with limited or no assistance;unable to do house work without assistance Falls Risk Assessment:no frequent falls while walking; no dizziness/vertigo Home Safety:no unsafe diana hazzards; working smoke/CO detectors; use of seatbelts; no fire arms; good lighting in the home;does not have hand bars in the bathroom/shower Luigi Jenkins MD [address], [address], [facility] 10/20/2024 12:40:14 OBGyn Episode No OBEpisode recorded.
== END 2025-03-11 08:51 | disposition home or self-care (01) ==
LOC: HO.HSM 08:26
PROVIDERS: PCP Pediatrics; Visit Provider Psychiatry & Neurology Neurology
DX: E85.4 Organ-limited amyloidosis (principal); I68.0 Cerebral amyloid angiopathy; F03.918 Unspecified dementia, unspecified severity, with other behavioral disturbance
CPT/HCPCS: 99214

== ENCOUNTER → 2025-03-11 08:25 | Outpatient (BNVA) | payer MEDICARE, SELFPAY | PROVIDERS: PCP Pediatrics; Visit Provider Psychiatry & Neurology Neurology | DX: E85.4 Organ-limited amyloidosis (principal); I68.0 Cerebral amyloid angiopathy; F03.B4 Unspecified dementia, moderate, with anxiety; Z79.899 Other long term (current) drug therapy | CPT/HCPCS: 99212 ==